=== PATIENT | male | born 1950 | race Caucasian/White ===

== ENCOUNTER 2019-04-22 12:08 | Inpatient (IN) ==
[2019-04-22] MEDS ORDERED: AZITHROMYCIN 250 MG TABLET PO STA (13:33)
[2019-04-22] MEDS ORDERED: cefTRIAXone 1,000 MG in SODIUM CHLORIDE 0.9% 100 ML IV STA (13:33)
[2019-04-22] MEDS ORDERED: SODIUM CHLORIDE 0.9% 1,000 ML IV STA (13:35)
[2019-04-22] MEDS ORDERED: ALBUTEROL 2.5 MG/3 ML NEB RESP TX STA (13:47)
[2019-04-22] MEDS ORDERED: guaiFENesin 200 MG/10 ML UDCUP PO STA (13:47)
[2019-04-22 14:02] LABS: Basophils % 0.2 % (0.0-0.8); Eosinophils # 0.1 10*3/uL (0.0-0.87); Eosinophils % 0.7 % (0.00-10.9); Hematocrit 41.4 VOL% (42.0-52.0); Hemoglobin 13.9 GM/DL (14.0-18.0); Immature Granulocytes % 0.8 %; Immature Granulocytes Absolute 0.08 #; Lymphocytes # 0.8 10*3/uL (1.4-4.0); Lymphocytes % 8.6 % (21.2-54.2); Mean Corpuscular HGB Conc 33.6 GM/DL (32-36); Mean Corpuscular Volume 89.8 FL (87-102); Mean Platelet Volume 9.3 FL (9.6-12.0); Monocytes % 5.9 % (1.7-12.7); Neutrophils % 83.8 % (38.7-73.9); Platelet Count 199 T/CUMM (130-400); Red Blood Count 4.61 MC/CUMM (3.8-5.5); Red Cell Distribution Width 12.6 % (9.3-17.3); White Blood Count 9.7 T/CUMM (4-12)
[2019-04-22 14:26] LABS: Albumin 3.5 G/DL (3.4-5.0); Osmolality,Calculated 280.4 MOS/KG (273-304); Total Protein 6.8 G/DL (6.4-8.3)
[2019-04-22] MEDS ORDERED: BENZONATATE 100 MG CAPSULE PO STA ×2 (15:20→15:21)
[2019-04-22] MEDS ORDERED: BENZONATATE 100 MG CAPSULE PO ONE (15:33)
[2019-04-22] MEDS: GABAPENTIN 100 MG CAPSULE PO SCH ×2 (18:54→22:12)
[2019-04-22] MEDS: CARBIDOPA/LEVODOPA 25-100 MG TABLET PO SCH (18:54)
[2019-04-22] MEDS: ALBUTEROL/IPRATROPIUM 3 ML NEB RESP TX SCH (19:27)
[2019-04-22] MEDS: ASPIRIN EC 81 MG TABLET PO SCH (21:22)
[2019-04-22] MEDS: ACETAMINOPHEN 325 MG TABLET PO PRN (21:25)
[2019-04-22] MEDS: CARBIDOPA/LEVODOPA CR 50-200 MG TABLET PO SCH (21:25)
[2019-04-22] MEDS: GABAPENTIN 300 MG CAPSULE PO SCH (21:45)
[2019-04-23] MEDS: ALBUTEROL/IPRATROPIUM 3 ML NEB RESP TX SCH ×4 (00:17→19:35)
[2019-04-23 05:00] LABS: Basophils % 0.2 % (0.0-0.8); Eosinophils # 0.1 10*3/uL (0.0-0.87); Eosinophils % 0.5 % (0.00-10.9); Hematocrit 37.4 VOL% (42.0-52.0); Hemoglobin 12.3 GM/DL (14.0-18.0); Immature Granulocytes % 0.7 %; Immature Granulocytes Absolute 0.09 #; Lymphocytes % 8.5 % (21.2-54.2); Mean Corpuscular HGB Conc 32.9 GM/DL (32-36); Mean Corpuscular Volume 90.1 FL (87-102); Mean Platelet Volume 9.2 FL (9.6-12.0); Neutrophils % 84.1 % (38.7-73.9); Platelet Count 171 T/CUMM (130-400); Red Blood Count 4.15 MC/CUMM (3.8-5.5); Red Cell Distribution Width 12.5 % (9.3-17.3); White Blood Count 12.2 T/CUMM (4-12)
[2019-04-23 05:27] LABS: Albumin 2.7 G/DL (3.4-5.0); Bilirubin,Total 0.9 MG/DL (0.2-1.0); Calcium 9.1 MG/DL (8.5-10.1); Osmolality,Calculated 284.1 MOS/KG (273-304); Risk Ratio 4.84; Thyroid Stimulating Hormone 0.153 uIU/ml (0.358-3.74); Total Protein 6.5 G/DL (6.4-8.3); VLDL CHOLESTEROL 23.6 MG/DL
[2019-04-23] MEDS: GABAPENTIN 100 MG CAPSULE PO SCH ×2 (05:57→17:42)
[2019-04-23] MEDS: CARBIDOPA/LEVODOPA 25-100 MG TABLET PO SCH ×3 (05:57→17:41)
[2019-04-23] MEDS: FINASTERIDE 5 MG TABLET PO SCH (08:54)
[2019-04-23] MEDS: allopurinoL 300 MG TABLET PO SCH (08:54)
[2019-04-23] MEDS: CYANOCOBALAMIN 500 MCG TABLET PO SCH (08:54)
[2019-04-23] MEDS: PANTOPRAZOLE 40 MG TABLET PO SCH (08:54)
[2019-04-23] MEDS: TERBINAFINE 250 MG TABLET PO SCH (08:54)
[2019-04-23] MEDS: SERTRALINE 100 MG TABLET PO SCH (08:54)
[2019-04-23] MEDS: AZITHROMYCIN INJ 500 MG in SODIUM CHLORIDE 0.9% 250 ML IV SCH (08:57)
[2019-04-23] MEDS: cefTRIAXone 1,000 MG in SYRINGE 1 EACH IV SCH (10:01)
[2019-04-23] MEDS: ACETAMINOPHEN 325 MG TABLET PO PRN (14:20)
[2019-04-23] MEDS: GABAPENTIN 300 MG CAPSULE PO SCH (21:44)
[2019-04-23] MEDS: ASPIRIN EC 81 MG TABLET PO SCH (21:45)
[2019-04-23] MEDS: CARBIDOPA/LEVODOPA CR 50-200 MG TABLET PO SCH (21:58)
[2019-04-24] MEDS: ALBUTEROL/IPRATROPIUM 3 ML NEB RESP TX SCH ×3 (02:20→14:02)
[2019-04-24 04:49] LABS: Basophils % 0.4 % (0.0-0.8); Eosinophils # 0.2 10*3/uL (0.0-0.87); Eosinophils % 2.5 % (0.00-10.9); Hematocrit 34.8 VOL% (42.0-52.0); Hemoglobin 11.3 GM/DL (14.0-18.0); Immature Granulocytes % 1.1 %; Immature Granulocytes Absolute 0.09 #; Lymphocytes % 11.2 % (21.2-54.2); Mean Corpuscular HGB Conc 32.5 GM/DL (32-36); Mean Corpuscular Volume 90.6 FL (87-102); Mean Platelet Volume 9.2 FL (9.6-12.0); Monocytes % 6.9 % (1.7-12.7); Neutrophils % 77.9 % (38.7-73.9); Platelet Count 189 T/CUMM (130-400); Red Blood Count 3.84 MC/CUMM (3.8-5.5); Red Cell Distribution Width 12.8 % (9.3-17.3); White Blood Count 8.6 T/CUMM (4-12)
[2019-04-24 05:06] LABS: Albumin 2.7 G/DL (3.4-5.0); Bilirubin,Total 0.5 MG/DL (0.2-1.0); Calcium 8.8 MG/DL (8.5-10.1); Total Protein 6.1 G/DL (6.4-8.3)
[2019-04-24] MEDS: GABAPENTIN 100 MG CAPSULE PO SCH (06:28)
[2019-04-24] MEDS: CARBIDOPA/LEVODOPA 25-100 MG TABLET PO SCH ×2 (06:29→13:02)
[2019-04-24] MEDS: ACETAMINOPHEN 325 MG TABLET PO PRN (06:37)
[2019-04-24] MEDS: TERBINAFINE 250 MG TABLET PO SCH (09:01)
[2019-04-24] MEDS: FINASTERIDE 5 MG TABLET PO SCH (09:01)
[2019-04-24] MEDS: allopurinoL 300 MG TABLET PO SCH (09:01)
[2019-04-24] MEDS: PANTOPRAZOLE 40 MG TABLET PO SCH (09:01)
[2019-04-24] MEDS: SERTRALINE 100 MG TABLET PO SCH (09:01)
[2019-04-24] MEDS: CYANOCOBALAMIN 500 MCG TABLET PO SCH (09:01)
[2019-04-24] MEDS: cefTRIAXone 1,000 MG in SYRINGE 1 EACH IV SCH (09:01)
[2019-04-24] MEDS: AZITHROMYCIN INJ 500 MG in SODIUM CHLORIDE 0.9% 250 ML IV SCH (09:02)
[2019-04-24 12:11] VITALS: BP 122/76
[2019-04-25] MEDS ORDERED: AZITHROMYCIN 250 MG TABLET PO SCH (09:00)
== END 2019-04-24 15:03 | disposition home or self-care (01) | DRG 195 ==
LOC: N.ED 12:08 → N.EDINP 15:18 → N.2E 16:30
PROVIDERS: ADMIT Internal Medicine; ATTEND Internal Medicine

== ENCOUNTER 2020-09-25 11:39 | Inpatient (IN) ==
[2020-09-25] MEDS ORDERED: SODIUM CHLORIDE 0.9% 1,000 ML IV STA ×3 (12:02→14:08)
[2020-09-25 12:19] LABS: ABG Base Excess -2.1 MMOL/L (-2.5-2.5); ABG HCO3 22.4 MMOL/L (20-26); ABG Oxygen Saturation 86.2 % (95-100); ABG PCO2 41.7 MM HG (35-48); ABG PH 7.357 (7.35-7.45); ABG PO2 53.3 MM HG (80-95); ABG TCO2 20.2 MMOL/L (23-27)
[2020-09-25 12:22] LABS: Basophils % 0.3 % (0.0-0.8); Eosinophils % 0.1 % (0.00-10.9); Hematocrit 48.4 VOL% (42.0-52.0); Immature Granulocytes % 0.1 %; Immature Granulocytes Absolute 0.01 #; Lymphocytes # 0.3 10*3/uL (1.4-4.0); Lymphocytes % 3.8 % (21.2-54.2); Mean Corpuscular Volume 91.3 FL (87-102); Monocytes % 0.3 % (1.7-12.7); Neutrophils % 95.4 % (38.7-73.9); Platelet Count 141 T/CUMM (130-400); Red Cell Distribution Width 14.3 % (9.3-17.3); White Blood Count 7.2 T/CUMM (4-12)
[2020-09-25 12:42] LABS: Band Neutrophils 41 % (0-10); Lymphocytes 3 % (20-55); Metamyelocytes 6 %; Platelet Estimate Adequate; Segmented Neutrophils 50 % (50-85); Total Cells Counted 100
[2020-09-25 12:43] LABS: Anisocytosis Slight
[2020-09-25 12:44] LABS: Alanine Aminotransferase < 9 U/L (16-61); Alkaline Phosphatase 96 U/L (45-117); Aspartate Amino Transferase 15 U/L (0-37); Blood Urea Nitrogen 28 MG/DL (7-18); Calcium 9.4 MG/DL (8.5-10.1); Carbon Dioxide 26 MMOL/L (21-32); Estimated Glom Filtration Rate 65 ML/MIN; Glucose 134 MG/DL (74-106); INR 1.1; PT Patient Result 11.8 SECS (9.8-11.9); Potassium 4.1 MMOL/L (3.5-5.1); Sodium 143 MMOL/L (136-145); Total Protein 7.1 G/DL (6.4-8.3)
[2020-09-25] MEDS ORDERED: PIPERACILLIN/TAZOBACTAM 3,375 MG in SODIUM CHLORIDE 0.9% 100 ML IV STA (13:10)
[2020-09-25] MEDS ORDERED: PIPERACILLIN/TAZOBACTAM 3,375 MG VIAL IV ONE (13:22)
[2020-09-25] MEDS ORDERED: SODIUM CHLORIDE 0.9% 100 ML IV ONE (13:22)
[2020-09-25 13:26] LABS: Bilirubin,Urine Negative (Negative); Blood, Urine Large mg/dL (Negative); Glucose,Urine (UA) Negative (Negative); Ketones,Urine Negative (Negative); Nitrite,Urine Negative (Negative); Protein,Urine >=500 MG/DL; RBC,Urine 12288 /HPF (0-4); Urine Appearance CLOUDY (Clear); Urine Color Red (Yellow); Urine Specific Gravity 1.018 (1.001-1.035); Urine Urobilinogen < 2.0 EU/DL (0.2-1.0); WBC,Urine 90 /HPF (0-6)
[2020-09-25] MEDS ORDERED: ALBUTEROL/IPRATROPIUM 3 ML NEB RESP TX PRN (14:42)
[2020-09-25] MEDS ORDERED: ONDANSETRON 4 MG/2 ML VIAL IV PRN (14:42)
[2020-09-25] MEDS: LACTATED RINGERS 1,000 ML IV SCH (16:23)
[2020-09-25] MEDS: FAMOTIDINE 20 MG/2 ML VIAL IV SCH (16:23)
[2020-09-25] MEDS: LEVOFLOXACIN INJ 500 MG in PREMIX 1 EACH IV SCH (16:25)
[2020-09-25] MEDS ORDERED: LACTATED RINGERS 1,000 ML IV ONE ×2 (16:50→19:30)
[2020-09-25 16:53] LABS: Ferritin 565.6 ng/ml (26-388)
[2020-09-25 17:54] LABS: Basophils % 0.2 % (0.0-0.8); Eosinophils % 0.2 % (0.00-10.9); Hematocrit 37.6 VOL% (42.0-52.0); Hemoglobin 11.4 GM/DL (14.0-18.0); Immature Granulocytes % 1.4 %; Immature Granulocytes Absolute 0.28 #; Lymphocytes # 0.3 10*3/uL (1.4-4.0); Lymphocytes % 1.5 % (21.2-54.2); Mean Corpuscular HGB Conc 30.3 GM/DL (32-36); Mean Corpuscular Volume 92.8 FL (87-102); Monocytes % 3.1 % (1.7-12.7); Neutrophils % 93.6 % (38.7-73.9); Platelet Count 135 T/CUMM (130-400); Red Blood Count 4.05 MC/CUMM (3.8-5.5); Red Cell Distribution Width 14.3 % (9.3-17.3); White Blood Count 19.7 T/CUMM (4-12)
[2020-09-25] MEDS: CARBIDOPA/LEVODOPA 25-100 MG TABLET PO SCH ×2 (18:13→20:35)
[2020-09-25] MEDS ORDERED: ALBUMIN 5% 25 GM in PREMIX 1 EACH IV ONE (18:34)
[2020-09-25 18:37] LABS: Band Neutrophils 13 % (0-10); Lymphocytes 1 % (20-55); Metamyelocytes 1 %; Myelocytes 4 %; Segmented Neutrophils 77 % (50-85); Total Cells Counted 100
[2020-09-25 18:39] LABS: Platelet Estimate Adequate
[2020-09-25 18:42] LABS: Anisocytosis 1+
[2020-09-25 18:43] LABS: Macrocytosis 1+; Microcytosis 1+
[2020-09-25] MEDS: ACETAMINOPHEN 325 MG TABLET PO PRN (19:04)
[2020-09-25] MEDS ORDERED: ALBUMIN 25% 12.5 GM in PREMIX 1 EACH IV ONE (19:05)
[2020-09-25] MEDS ORDERED: ALBUMIN 5% 12.5 GM in PREMIX 1 EACH IV ONE (19:11)
[2020-09-25] MEDS: GABAPENTIN 300 MG CAPSULE PO SCH (20:35)
[2020-09-25] MEDS: GABAPENTIN 100 MG CAPSULE PO SCH (20:36)
[2020-09-25] MEDS: ASCORBIC ACID 500 MG TABLET PO SCH (20:36)
[2020-09-25] MEDS: CARBIDOPA/LEVODOPA CR 25-100 MG TABLET PO SCH (20:40)
[2020-09-25] MEDS ORDERED: NOREPINEPHRINE 8 MG in SODIUM CHLORIDE 0.9% 242 ML IV PRN (21:27)
[2020-09-25] MEDS ORDERED: NOREPINEPHRINE 4 MG/4 ML VIAL IV ONE (21:28)
[2020-09-25 23:57] LABS: Basophils % 0.1 % (0.0-0.8); Hematocrit 36.1 VOL% (42.0-52.0); Hemoglobin 11.2 GM/DL (14.0-18.0); Immature Granulocytes % 1.4 %; Immature Granulocytes Absolute 0.31 #; Lymphocytes # 0.6 10*3/uL (1.4-4.0); Lymphocytes % 2.5 % (21.2-54.2); Mean Corpuscular Volume 91.4 FL (87-102); Mean Platelet Volume 10.5 FL (9.6-12.0); Monocytes % 4.3 % (1.7-12.7); Neutrophils % 91.7 % (38.7-73.9); Platelet Count 136 T/CUMM (130-400); Red Blood Count 3.95 MC/CUMM (3.8-5.5); Red Cell Distribution Width 14.6 % (9.3-17.3); White Blood Count 22.2 T/CUMM (4-12)
[2020-09-26] MEDS: LACTATED RINGERS 1,000 ML IV SCH ×4 (00:38→23:35)
[2020-09-26] MEDS: ACETAMINOPHEN 325 MG TABLET PO PRN ×2 (01:05→20:15)
[2020-09-26 04:36] LABS: Band Neutrophils 3 % (0-10); Lymphocytes 2 % (20-55); Platelet Estimate Decreased; Segmented Neutrophils 92 % (50-85); Total Cells Counted 100
[2020-09-26] MEDS: FAMOTIDINE 20 MG/2 ML VIAL IV SCH ×2 (04:40→14:49)
[2020-09-26 04:51] LABS: Basophils % 0.1 % (0.0-0.8); Eosinophils % 0.1 % (0.00-10.9); Hematocrit 36.7 VOL% (42.0-52.0); Hemoglobin 11.7 GM/DL (14.0-18.0); Immature Granulocytes % 0.9 %; Immature Granulocytes Absolute 0.18 #; Lymphocytes # 1.1 10*3/uL (1.4-4.0); Lymphocytes % 5.2 % (21.2-54.2); Mean Corpuscular HGB Conc 31.9 GM/DL (32-36); Mean Corpuscular Volume 90.6 FL (87-102); Mean Platelet Volume 10.7 FL (9.6-12.0); Monocytes % 5.2 % (1.7-12.7); Neutrophils % 88.5 % (38.7-73.9); Platelet Count 126 T/CUMM (130-400); Red Blood Count 4.05 MC/CUMM (3.8-5.5); Red Cell Distribution Width 14.5 % (9.3-17.3); White Blood Count 20.3 T/CUMM (4-12)
[2020-09-26 05:04] LABS: Calcium 8.4 MG/DL (8.5-10.1); Osmolality,Calculated 284.4 MOS/KG (273-304); Potassium 4.2 MMOL/L (3.5-5.1)
[2020-09-26 08:15] LABS: Anisocytosis Slight; Band Neutrophils 5 % (0-10); Lymphocytes 3 % (20-55); Macrocytosis Slight; Platelet Estimate Decreased; Segmented Neutrophils 88 % (50-85); Total Cells Counted 100
[2020-09-26] MEDS: CARBIDOPA/LEVODOPA 25-100 MG TABLET PO SCH ×3 (09:43→20:16)
[2020-09-26] MEDS: GABAPENTIN 100 MG CAPSULE PO SCH ×2 (09:44→20:16)
[2020-09-26] MEDS: CHOLECALCIFEROL 1,000 UNIT TABLET PO SCH (09:44)
[2020-09-26] MEDS: ASCORBIC ACID 500 MG TABLET PO SCH ×2 (09:44→20:15)
[2020-09-26] MEDS: FINASTERIDE 5 MG TABLET PO SCH (09:45)
[2020-09-26] MEDS: SERTRALINE 100 MG TABLET PO SCH (09:45)
[2020-09-26] MEDS: cefTRIAXone 1,000 MG in SYRINGE 1 EACH IV SCH (13:46)
[2020-09-26] MEDS ORDERED: MAGNESIUM SULF RIDER 2 GM in PREMIX 1 EACH IV ONE (15:41)
[2020-09-26] MEDS: LEVOFLOXACIN INJ 500 MG in PREMIX 1 EACH IV SCH (16:30)
[2020-09-26] MEDS: CARBIDOPA/LEVODOPA CR 25-100 MG TABLET PO SCH (20:15)
[2020-09-26] MEDS: GABAPENTIN 300 MG CAPSULE PO SCH (20:16)
[2020-09-27] MEDS: FAMOTIDINE 20 MG/2 ML VIAL IV SCH ×2 (03:07→15:49)
[2020-09-27 06:26] LABS: Basophils % 0.2 % (0.0-0.8); Eosinophils # 0.2 10*3/uL (0.0-0.87); Eosinophils % 1.5 % (0.00-10.9); Hematocrit 35.7 VOL% (42.0-52.0); Hemoglobin 11.6 GM/DL (14.0-18.0); Immature Granulocytes % 2.2 %; Immature Granulocytes Absolute 0.27 #; Lymphocytes # 0.9 10*3/uL (1.4-4.0); Lymphocytes % 7.2 % (21.2-54.2); Mean Corpuscular HGB Conc 32.5 GM/DL (32-36); Mean Corpuscular Volume 88.6 FL (87-102); Mean Platelet Volume 10.1 FL (9.6-12.0); Monocytes % 3.9 % (1.7-12.7); Platelet Count 115 T/CUMM (130-400); Red Blood Count 4.03 MC/CUMM (3.8-5.5); Red Cell Distribution Width 14.3 % (9.3-17.3); White Blood Count 12.3 T/CUMM (4-12)
[2020-09-27] MEDS: LACTATED RINGERS 1,000 ML IV SCH ×3 (06:42→22:16)
[2020-09-27 07:54] LABS: Calcium 8.6 MG/DL (8.5-10.1); Osmolality,Calculated 283.1 MOS/KG (273-304); Potassium 4.1 MMOL/L (3.5-5.1)
[2020-09-27] MEDS: ASCORBIC ACID 500 MG TABLET PO SCH ×2 (08:27→22:27)
[2020-09-27] MEDS: GABAPENTIN 100 MG CAPSULE PO SCH ×2 (08:27→22:27)
[2020-09-27] MEDS: SERTRALINE 100 MG TABLET PO SCH (08:28)
[2020-09-27] MEDS: CARBIDOPA/LEVODOPA 25-100 MG TABLET PO SCH ×3 (08:28→22:27)
[2020-09-27] MEDS: FINASTERIDE 5 MG TABLET PO SCH (08:28)
[2020-09-27] MEDS: CHOLECALCIFEROL 1,000 UNIT TABLET PO SCH (08:28)
[2020-09-27] MEDS: methylPREDNISolone SOD SUC 40 MG/1 ML VIAL IV SCH ×2 (09:30→21:44)
[2020-09-27] MEDS: cefTRIAXone 1,000 MG in SYRINGE 1 EACH IV SCH (12:30)
[2020-09-27] MEDS: GENTAMICIN INJ 120 MG in PREMIX 1 EACH IV SCH (14:29)
[2020-09-27] MEDS: ACETAMINOPHEN 325 MG TABLET PO PRN (15:59)
[2020-09-27] MEDS: GABAPENTIN 300 MG CAPSULE PO SCH (21:43)
[2020-09-27] MEDS: TAMSULOSIN 0.4 MG CAPSULE PO SCH (22:27)
[2020-09-27] MEDS: CARBIDOPA/LEVODOPA CR 25-100 MG TABLET PO SCH (22:27)
[2020-09-28] MEDS: FAMOTIDINE 20 MG/2 ML VIAL IV SCH ×2 (02:35→15:35)
[2020-09-28 05:23] LABS: Basophils % 0.1 % (0.0-0.8); Hematocrit 36.5 VOL% (42.0-52.0); Immature Granulocytes % 2.6 %; Immature Granulocytes Absolute 0.36 #; Lymphocytes # 0.5 10*3/uL (1.4-4.0); Lymphocytes % 3.6 % (21.2-54.2); Mean Corpuscular HGB Conc 32.9 GM/DL (32-36); Mean Corpuscular Volume 86.9 FL (87-102); Mean Platelet Volume 10.5 FL (9.6-12.0); Monocytes % 2.6 % (1.7-12.7); Neutrophils % 91.1 % (38.7-73.9); Platelet Count 147 T/CUMM (130-400); Red Cell Distribution Width 14.1 % (9.3-17.3); White Blood Count 13.7 T/CUMM (4-12)
[2020-09-28 05:46] LABS: Hypochromasia 1+; Lymphocytes 2 % (20-55); Microcytosis 1+; Platelet Estimate Adequate; Segmented Neutrophils 94 % (50-85); Total Cells Counted 100
[2020-09-28] MEDS: LACTATED RINGERS 1,000 ML IV SCH ×2 (06:34→16:36)
[2020-09-28] MEDS: SERTRALINE 100 MG TABLET PO SCH ×2 (09:00→21:54)
[2020-09-28] MEDS: FINASTERIDE 5 MG TABLET PO SCH ×2 (09:00→21:54)
[2020-09-28] MEDS: GABAPENTIN 100 MG CAPSULE PO SCH (09:33)
[2020-09-28] MEDS: CARBIDOPA/LEVODOPA 25-100 MG TABLET PO SCH ×3 (09:33→17:00)
[2020-09-28] MEDS: CHOLECALCIFEROL 1,000 UNIT TABLET PO SCH (09:34)
[2020-09-28] MEDS: ASCORBIC ACID 500 MG TABLET PO SCH (09:34)
[2020-09-28] MEDS: methylPREDNISolone SOD SUC 40 MG/1 ML VIAL IV SCH ×2 (09:34→21:54)
[2020-09-28] MEDS: cefTRIAXone 1,000 MG in SYRINGE 1 EACH IV SCH (12:32)
[2020-09-28] MEDS: GENTAMICIN INJ 120 MG in PREMIX 1 EACH IV SCH (13:35)
[2020-09-28] MEDS ORDERED: GABAPENTIN 100 MG CAPSULE PO PRN (20:10)
[2020-09-28] MEDS: allopurinoL 300 MG TABLET PO SCH (21:54)
[2020-09-28] MEDS: ASPIRIN CHEW 81 MG TABLET PO SCH (21:54)
[2020-09-28] MEDS: TAMSULOSIN 0.4 MG CAPSULE PO SCH (21:54)
[2020-09-29] MEDS: CARBIDOPA/LEVODOPA 25-100 MG TABLET PO SCH ×5 (00:13→22:27)
[2020-09-29] MEDS: CARBIDOPA/LEVODOPA CR 25-100 MG TABLET PO SCH ×2 (00:14→22:28)
[2020-09-29] MEDS: GABAPENTIN 600 MG TABLET PO SCH ×2 (00:14→22:27)
[2020-09-29] MEDS: ASCORBIC ACID 500 MG TABLET PO SCH ×3 (00:14→22:28)
[2020-09-29] MEDS: FAMOTIDINE 20 MG/2 ML VIAL IV SCH ×2 (03:46→15:49)
[2020-09-29 05:32] LABS: Immature Granulocytes % 1.2 %; Immature Granulocytes Absolute 0.11 #; Lymphocytes # 0.5 10*3/uL (1.4-4.0); Lymphocytes % 5.7 % (21.2-54.2); Mean Corpuscular HGB Conc 31.6 GM/DL (32-36); Monocytes % 2.8 % (1.7-12.7); Neutrophils % 90.3 % (38.7-73.9); Platelet Count 161 T/CUMM (130-400); Red Blood Count 4.22 MC/CUMM (3.8-5.5); Red Cell Distribution Width 13.8 % (9.3-17.3); White Blood Count 8.9 T/CUMM (4-12)
[2020-09-29 06:03] LABS: Calcium 8.6 MG/DL (8.5-10.1); Osmolality,Calculated 283.4 MOS/KG (273-304); Potassium 4.4 MMOL/L (3.5-5.1)
[2020-09-29] MEDS: POTASSIUM CHLORIDE 10 MEQ TABLET PO SCH (08:49)
[2020-09-29] MEDS: TAMSULOSIN 0.4 MG CAPSULE PO SCH ×2 (08:49→22:13)
[2020-09-29] MEDS: CHOLECALCIFEROL 1,000 UNIT TABLET PO SCH (08:50)
[2020-09-29] MEDS: methylPREDNISolone SOD SUC 40 MG/1 ML VIAL IV SCH ×2 (08:51→22:13)
[2020-09-29] MEDS: ASPIRIN CHEW 81 MG TABLET PO SCH (09:00)
[2020-09-29] MEDS: LACTATED RINGERS 1,000 ML IV SCH ×2 (10:27→20:23)
[2020-09-29] MEDS: cefTRIAXone 1,000 MG in SYRINGE 1 EACH IV SCH (15:46)
[2020-09-29] MEDS: GENTAMICIN INJ 120 MG in PREMIX 1 EACH IV SCH (15:54)
[2020-09-29] MEDS ORDERED: INFLUENZA VIRUS VACCINE 0.5 ML SYRINGE IM ONE (16:14)
[2020-09-29] MEDS ORDERED: ASPIRIN CHEW 81 MG TABLET PO SCH (21:00)
[2020-09-29] MEDS: FINASTERIDE 5 MG TABLET PO SCH (22:12)
[2020-09-29] MEDS: allopurinoL 300 MG TABLET PO SCH (22:12)
[2020-09-29] MEDS: SERTRALINE 100 MG TABLET PO SCH (22:13)
[2020-09-30] MEDS: FAMOTIDINE 20 MG/2 ML VIAL IV SCH (02:30)
[2020-09-30 05:44] LABS: Basophils % 0.2 % (0.0-0.8); Hematocrit 36.8 VOL% (42.0-52.0); Immature Granulocytes Absolute 0.06 #; Lymphocytes # 0.5 10*3/uL (1.4-4.0); Lymphocytes % 8.3 % (21.2-54.2); Mean Corpuscular HGB Conc 32.6 GM/DL (32-36); Mean Corpuscular Volume 87.6 FL (87-102); Mean Platelet Volume 9.9 FL (9.6-12.0); Neutrophils % 86.5 % (38.7-73.9); Platelet Count 154 T/CUMM (130-400); Red Cell Distribution Width 13.5 % (9.3-17.3); White Blood Count 6.1 T/CUMM (4-12)
[2020-09-30 06:08] LABS: Calcium 8.6 MG/DL (8.5-10.1); Osmolality,Calculated 283.5 MOS/KG (273-304); Potassium 4.3 MMOL/L (3.5-5.1)
[2020-09-30] MEDS: ASCORBIC ACID 500 MG TABLET PO SCH (09:21)
[2020-09-30] MEDS: POTASSIUM CHLORIDE 10 MEQ TABLET PO SCH (09:21)
[2020-09-30] MEDS: CHOLECALCIFEROL 1,000 UNIT TABLET PO SCH (09:21)
[2020-09-30] MEDS: TAMSULOSIN 0.4 MG CAPSULE PO SCH (09:21)
[2020-09-30] MEDS: methylPREDNISolone SOD SUC 40 MG/1 ML VIAL IV SCH (09:26)
[2020-09-30] MEDS: LACTATED RINGERS 1,000 ML IV SCH (09:27)
[2020-09-30] MEDS: CARBIDOPA/LEVODOPA 25-100 MG TABLET PO SCH ×2 (09:29→12:26)
[2020-09-30] MEDS: cefTRIAXone 1,000 MG in SYRINGE 1 EACH IV SCH (12:04)
[2020-09-30 16:15] VITALS: BP 144/78
[2020-09-30] MEDS ORDERED: FAMOTIDINE 20 MG TABLET PO SCH (21:00)
== END 2020-09-30 18:01 | DRG 871 ==
LOC: N.ED 11:39 → N.EDINP 14:42 → SUATTDRO 14:42 → N.EDINP 16:01 → N.CC 16:53 → N.3E 09-27 18:45
PROVIDERS: ADMIT Family Medicine; ATTEND Internal Medicine

== ENCOUNTER 2020-12-05 10:06 | Inpatient (IN) ==
[2020-12-05] MEDS ORDERED: MORPHINE 4 MG/1 ML VIAL ONE (10:18)
[2020-12-05] MEDS ORDERED: MORPHINE 4 MG/1 ML VIAL IV STA (10:27)
[2020-12-05 10:55] LABS: Basophils % 0.3 % (0.0-0.8); Eosinophils % 0.6 % (0.00-10.9); Hematocrit 40.2 VOL% (42.0-52.0); Hemoglobin 12.1 GM/DL (14.0-18.0); Immature Granulocytes % 0.7 %; Immature Granulocytes Absolute 0.05 #; Lymphocytes # 0.8 10*3/uL (1.4-4.0); Lymphocytes % 11.2 % (21.2-54.2); Mean Corpuscular HGB Conc 30.1 GM/DL (32-36); Mean Corpuscular Volume 91.8 FL (87-102); Mean Platelet Volume 10.1 FL (9.6-12.0); Monocytes % 3.3 % (1.7-12.7); Neutrophils % 83.9 % (38.7-73.9); Platelet Count 102 T/CUMM (130-400); Red Blood Count 4.38 MC/CUMM (3.8-5.5); Red Cell Distribution Width 15.7 % (9.3-17.3)
[2020-12-05 11:03] LABS: ABG Base Excess 2.7 MMOL/L (-2.5-2.5); ABG HCO3 26.7 MMOL/L (20-26); ABG PH 7.238 (7.35-7.45); ABG PO2 70.9 MM HG (80-95)
[2020-12-05 11:14] LABS: Bilirubin,Urine Negative (Negative); Blood, Urine Moderate mg/dL (Negative); Glucose,Urine (UA) 50 mg/dL (Negative); Hyaline Casts,Urine 43 /LPF (0-3); Ketones,Urine 5 mg/dL (Negative); Mucus,Urine Many /LPF (Occasional); Nitrite,Urine Negative (Negative); Protein,Urine 100 MG/DL; RBC,Urine 6 /HPF (0-4); Red Blood Cell Casts,Urine 4 /LPF (<1); Squamous Epithelial Cell,Urine Occasional /HPF (0-10); Urine Appearance Slightly Hazy (Clear); Urine Color Amber (Yellow); Urine Specific Gravity 1.015 (1.001-1.035)
[2020-12-05 11:16] LABS: INR 1.1; PT Patient Result 12.2 SECS (10.5-12.0)
[2020-12-05] MEDS ORDERED: cefTRIAXone 1,000 MG in SODIUM CHLORIDE 0.9% 100 ML IV STA (11:20)
[2020-12-05 11:31] LABS: Alanine Aminotransferase < 6 U/L (16-61); Albumin 3.1 G/DL (3.4-5.0); Alkaline Phosphatase 73 U/L (45-117); Aspartate Amino Transferase 23 U/L (0-37); Blood Urea Nitrogen 17 MG/DL (7-18); Calcium 8.5 MG/DL (8.5-10.1); Carbon Dioxide 28 MMOL/L (21-32); Estimated Glom Filtration Rate 130 ML/MIN; Glucose 127 MG/DL (74-106); Osmolality,Calculated 293.6 MOS/KG (273-304); Potassium 3.9 MMOL/L (3.5-5.1); Sodium 146 MMOL/L (136-145); Total Protein 5.8 G/DL (6.4-8.2)
[2020-12-05] MEDS ORDERED: ASPIRIN CHEW 81 MG TABLET PO STA (11:52)
[2020-12-05] MEDS ORDERED: ENOXAPARIN 30 MG/0.3 ML SYRINGE SUBCUT STA (11:52)
[2020-12-05] MEDS ORDERED: ENOXAPARIN 30 MG/0.3 ML SYRINGE IV STA (11:53)
[2020-12-05] MEDS ORDERED: TIROFIBAN IV ONE (11:58)
[2020-12-05] MEDS ORDERED: TIROFIBAN 5,000 MCG/100 ML PREMIX IV SCH (12:00)
[2020-12-05] MEDS ORDERED: ASPIRIN 325 MG TABLET ONE (12:04)
[2020-12-05] MEDS ORDERED: ENOXAPARIN 100 MG/ML SYRINGE SUBCUT ONE (12:04)
[2020-12-05] MEDS ORDERED: ASPIRIN 300 MG SUPP RECTAL ONE (12:18)
[2020-12-05] MEDS ORDERED: ASPIRIN 300 MG SUPP RECTAL STA (12:23)
[2020-12-05 12:24] LABS: ABG Base Excess 2.7 MMOL/L (-2.5-2.5); ABG HCO3 26.8 MMOL/L (20-26); ABG Oxygen Saturation 94.5 % (95-100); ABG PH 7.235 (7.35-7.45); ABG PO2 80.3 MM HG (80-95); ABG TCO2 30.1 MMOL/L (23-27); Allen Test Positive; Pt O2 Delivery Device BIPAP
[2020-12-05 12:27] LABS: ABG PCO2 77.8 MM HG (35-48)
[2020-12-05] MEDS ORDERED: ETOMIDATE 20 MG/10 ML VIAL IV ONE (13:07)
[2020-12-05] MEDS ORDERED: ROCURONIUM 100 MG/10 ML VIAL IV ONE (13:08)
[2020-12-05] MEDS ORDERED: ROCURONIUM 100 MG/10 ML VIAL IV STA (13:24)
[2020-12-05] MEDS ORDERED: ETOMIDATE 20 MG/10 ML VIAL IV STA (13:24)
[2020-12-05] MEDS ORDERED: ALBUTEROL 2.5 MG/3 ML NEB RESP TX PRN (14:08)
[2020-12-05] MEDS ORDERED: ONDANSETRON 4 MG/2 ML VIAL IV PRN (14:08)
[2020-12-05] MEDS ORDERED: hydrALAZINE 20 MG/1 ML VIAL IV PRN (14:08)
[2020-12-05] MEDS ORDERED: FUROSEMIDE 40 MG/4 ML VIAL IV ONE (14:12)
[2020-12-05] MEDS ORDERED: OXYMETAZOLINE 0.05% NASAL SPRAY 15 ML BOTTLE ONE (14:36)
[2020-12-05] MEDS ORDERED: OXYMETAZOLINE 0.05% NASAL SPRAY 15 ML BOTTLE BOTH NARES STA (14:36)
[2020-12-05] MEDS ORDERED: COCAINE SUBSTITUTE 30 ML BOTTLE TOP ONE (14:36)
[2020-12-05] MEDS ORDERED: COCAINE SUBSTITUTE 30 ML BOTTLE TOP STA (14:36)
[2020-12-05] MEDS: PANTOPRAZOLE 40 MG VIAL IV SCH (14:38)
[2020-12-05 15:02] LABS: ABG Base Excess 4.5 MMOL/L (-2.5-2.5); ABG HCO3 28.4 MMOL/L (20-26); ABG Oxygen Saturation 96.6 % (95-100); ABG PCO2 50.9 MM HG (35-48); ABG PH 7.387 (7.35-7.45); ABG PO2 76.8 MM HG (80-95); ABG TCO2 27.3 MMOL/L (23-27)
[2020-12-05] MEDS: INSULIN LISPRO 100 UNIT/ML SUBCUT SCH ×2 (17:01→22:07)
[2020-12-05] MEDS ORDERED: ATORVASTATIN 40 MG TABLET PO SCH (21:00)
[2020-12-05] MEDS: FUROSEMIDE 40 MG/4 ML VIAL IV SCH (21:12)
[2020-12-06 04:23] LABS: ABG Base Excess 9.6 MMOL/L (-2.5-2.5); ABG HCO3 33.4 MMOL/L (20-26); ABG Oxygen Saturation 99.7 % (95-100); ABG PCO2 42.4 MM HG (35-48); ABG PH 7.509 (7.35-7.45); ABG TCO2 29.7 MMOL/L (23-27); Allen Test Positive; Pt O2 Delivery Device Ventilator
[2020-12-06 04:28] LABS: Basophils % 0.2 % (0.0-0.8); Eosinophils # 0.2 10*3/uL (0.0-0.87); Hematocrit 37.9 VOL% (42.0-52.0); Hemoglobin 12.2 GM/DL (14.0-18.0); Immature Granulocytes % 0.6 %; Immature Granulocytes Absolute 0.05 #; Lymphocytes # 1.4 10*3/uL (1.4-4.0); Lymphocytes % 15.9 % (21.2-54.2); Mean Corpuscular HGB Conc 32.2 GM/DL (32-36); Mean Corpuscular Volume 87.1 FL (87-102); Mean Platelet Volume 10.1 FL (9.6-12.0); Monocytes % 5.3 % (1.7-12.7); Platelet Count 102 T/CUMM (130-400); Red Blood Count 4.35 MC/CUMM (3.8-5.5); Red Cell Distribution Width 15.4 % (9.3-17.3); White Blood Count 8.9 T/CUMM (4-12)
[2020-12-06 04:39] LABS: INR 1.2; PT Patient Result 12.8 SECS (10.5-12.0)
[2020-12-06 04:51] LABS: Hypochromasia Slight; Microcytosis Slight; Platelet Estimate Decreased
[2020-12-06 05:04] LABS: Alanine Aminotransferase < 9 U/L (16-61); Alkaline Phosphatase 68 U/L (45-117); Aspartate Amino Transferase 27 U/L (0-37); Blood Urea Nitrogen 14 MG/DL (7-18); Calcium 8.6 MG/DL (8.5-10.1); Carbon Dioxide 33 MMOL/L (21-32); Estimated Glom Filtration Rate 141 ML/MIN; Glucose 118 MG/DL (74-106); HDL Cholesterol 31 MG/DL (40-60); Osmolality,Calculated 287.8 MOS/KG (273-304); Potassium 2.9 MMOL/L (3.5-5.1); Risk Ratio 5.32; Sodium 144 MMOL/L (136-145); Total Protein 6.1 G/DL (6.4-8.2); Triglycerides 256 MG/DL (2-150); VLDL CHOLESTEROL 51.2 MG/DL
[2020-12-06] MEDS ORDERED: MAGNESIUM SULF RIDER 2 GM/50 ML PREMIX IV ONE (05:50)
[2020-12-06] MEDS ORDERED: MAGNESIUM SULF RIDER 2 GM/50 ML PREMIX IV PRN ×2 (06:01→07:43)
[2020-12-06] MEDS: POTASSIUM CHLORIDE RIDER 10 MEQ in PREMIX 1 EACH IV PRN ×3 (06:29→10:13)
[2020-12-06] MEDS: POTASSIUM CHLORIDE 20 MEQ/15 ML UDCUP PER TUBE SCH ×4 (07:07→18:10)
[2020-12-06] MEDS: LEVOFLOXACIN 750 MG TABLET PER TUBE SCH (07:07)
[2020-12-06] MEDS ORDERED: POTASSIUM CHLORIDE RIDER 10 MEQ in PREMIX 1 EACH IV PRN (07:43)
[2020-12-06] MEDS: INSULIN LISPRO 100 UNIT/ML SUBCUT SCH ×4 (08:06→23:52)
[2020-12-06] MEDS: ENOXAPARIN 100 MG/ML SYRINGE SUBCUT SCH ×2 (08:40→20:30)
[2020-12-06] MEDS: FUROSEMIDE 40 MG/4 ML VIAL IV SCH (08:43)
[2020-12-06] MEDS: FLUDROCORTISONE 0.1 MG TABLET PER TUBE SCH ×2 (08:45→13:30)
[2020-12-06] MEDS: CARBIDOPA/LEVODOPA 25-100 MG TABLET PER TUBE SCH ×3 (08:45→18:10)
[2020-12-06] MEDS ORDERED: DEXTROSE 50% 25 GM/50 ML VIAL IV PRN (08:59)
[2020-12-06] MEDS ORDERED: GLUCAGON 1 MG VIAL IM PRN (08:59)
[2020-12-06] MEDS ORDERED: ENOXAPARIN 40 MG/0.4 ML SYRINGE SUBCUT SCH (09:00)
[2020-12-06] MEDS: ASPIRIN CHEW 81 MG TABLET PO SCH (10:10)
[2020-12-06] MEDS ORDERED: LIDOCAINE 1% 20 ML VIAL ONE (10:55)
[2020-12-06] MEDS: ROSUVASTATIN 20 MG TABLET PO SCH (13:30)
[2020-12-06] MEDS: PANTOPRAZOLE 40 MG VIAL IV SCH (13:35)
[2020-12-06] MEDS: cefTRIAXone 1,000 MG in SODIUM CHLORIDE 0.9% 100 ML IV SCH (14:30)
[2020-12-06] MEDS: SODIUM CHLORIDE 0.65% NASAL SPRAY 45 ML BOTTLE BOTH NARES SCH ×2 (15:45→20:31)
[2020-12-06] MEDS ORDERED: SODIUM CHLORIDE 0.9% 500 ML IV ONE (17:41)
[2020-12-06] MEDS ORDERED: NOREPINEPHRINE 8 MG in SODIUM CHLORIDE 0.9% 242 ML IV PRN (17:44)
[2020-12-06] MEDS: GABAPENTIN 300 MG CAPSULE PER TUBE SCH (20:30)
[2020-12-06] MEDS: allopurinoL 300 MG TABLET PER TUBE SCH (20:30)
[2020-12-06] MEDS ORDERED: SPIRONOLACTONE 25 MG TABLET PO SCH (21:00)
[2020-12-06] MEDS ORDERED: METOPROLOL TARTRATE 25 MG TABLET PO SCH (21:00)
[2020-12-07] MEDS: MORPHINE 4 MG/1 ML VIAL IV PRN ×2 (03:04→10:00)
[2020-12-07 04:10] LABS: ABG Base Excess 7.1 MMOL/L (-2.5-2.5); ABG Oxygen Saturation 98.6 % (95-100); ABG PH 7.451 (7.35-7.45); ABG PO2 149.4 MM HG (80-95); ABG TCO2 33.4 MMOL/L (23-27)
[2020-12-07 04:15] LABS: Basophils % 0.2 % (0.0-0.8); Eosinophils # 0.1 10*3/uL (0.0-0.87); Eosinophils % 3.1 % (0.00-10.9); Hematocrit 33.8 VOL% (42.0-52.0); Hemoglobin 10.4 GM/DL (14.0-18.0); Immature Granulocytes % 0.4 %; Immature Granulocytes Absolute 0.02 #; Lymphocytes # 0.8 10*3/uL (1.4-4.0); Lymphocytes % 17.1 % (21.2-54.2); Mean Corpuscular HGB Conc 30.8 GM/DL (32-36); Mean Corpuscular Volume 89.9 FL (87-102); Mean Platelet Volume 10.3 FL (9.6-12.0); Monocytes % 6.2 % (1.7-12.7); Platelet Count 110 T/CUMM (130-400); Red Blood Count 3.76 MC/CUMM (3.8-5.5); Red Cell Distribution Width 15.7 % (9.3-17.3); White Blood Count 4.5 T/CUMM (4-12)
[2020-12-07 04:39] LABS: Potassium 3.4 MMOL/L (3.5-5.1)
[2020-12-07 04:42] LABS: Hypochromasia 1+; Microcytosis 1+; Platelet Estimate Decreased
[2020-12-07] MEDS: POTASSIUM CHLORIDE RIDER 10 MEQ in PREMIX 1 EACH IV PRN ×2 (05:50→07:30)
[2020-12-07] MEDS: LEVOFLOXACIN 750 MG TABLET PER TUBE SCH (05:58)
[2020-12-07] MEDS: INSULIN LISPRO 100 UNIT/ML SUBCUT SCH ×3 (05:58→18:19)
[2020-12-07] MEDS: CARBIDOPA/LEVODOPA 25-100 MG TABLET PER TUBE SCH ×3 (06:07→17:40)
[2020-12-07] MEDS ORDERED: POTASSIUM CHLORIDE 20 MEQ/15 ML UDCUP PO ONE (07:37)
[2020-12-07] MEDS: ASPIRIN CHEW 81 MG TABLET PO SCH (08:50)
[2020-12-07] MEDS: FLUDROCORTISONE 0.1 MG TABLET PER TUBE SCH ×2 (08:50→13:40)
[2020-12-07] MEDS: ROSUVASTATIN 20 MG TABLET PO SCH (08:50)
[2020-12-07] MEDS: ENOXAPARIN 100 MG/ML SYRINGE SUBCUT SCH (08:50)
[2020-12-07] MEDS ORDERED: PNEUMOCOCCAL VACCINE (13 VALENT) 0.5 ML SYRINGE IM ONE (09:00)
[2020-12-07] MEDS: SODIUM CHLORIDE 0.65% NASAL SPRAY 45 ML BOTTLE BOTH NARES SCH ×3 (09:10→20:52)
[2020-12-07] MEDS: ASCORBIC ACID 500 MG TABLET NG SCH ×2 (13:40→20:52)
[2020-12-07] MEDS: cefTRIAXone 1,000 MG in SODIUM CHLORIDE 0.9% 100 ML IV SCH (13:40)
[2020-12-07] MEDS: PANTOPRAZOLE 40 MG VIAL IV SCH (13:40)
[2020-12-07] MEDS ORDERED: POLYVINYL ALCOHOL 1.4% OPH SOLN 15 ML BOTTLE BOTH EYES PRN (14:38)
[2020-12-07] MEDS: allopurinoL 300 MG TABLET PER TUBE SCH (20:52)
[2020-12-07] MEDS: GABAPENTIN 300 MG CAPSULE PER TUBE SCH (20:52)
[2020-12-08] MEDS: INSULIN LISPRO 100 UNIT/ML SUBCUT SCH ×4 (02:07→18:01)
[2020-12-08 04:25] LABS: Basophils % 0.2 % (0.0-0.8); Eosinophils # 0.3 10*3/uL (0.0-0.87); Eosinophils % 6.6 % (0.00-10.9); Hematocrit 35.4 VOL% (42.0-52.0); Hemoglobin 10.7 GM/DL (14.0-18.0); Immature Granulocytes % 0.4 %; Immature Granulocytes Absolute 0.02 #; Lymphocytes # 1.1 10*3/uL (1.4-4.0); Lymphocytes % 23.6 % (21.2-54.2); Mean Corpuscular HGB Conc 30.2 GM/DL (32-36); Mean Corpuscular Volume 90.3 FL (87-102); Neutrophils % 62.2 % (38.7-73.9); Platelet Count 127 T/CUMM (130-400); Red Blood Count 3.92 MC/CUMM (3.8-5.5); Red Cell Distribution Width 15.6 % (9.3-17.3); White Blood Count 4.7 T/CUMM (4-12)
[2020-12-08 04:29] LABS: ABG Base Excess 8.5 MMOL/L (-2.5-2.5); ABG Oxygen Saturation 98.8 % (95-100); ABG PCO2 51.4 MM HG (35-48); ABG PH 7.438 (7.35-7.45); ABG PO2 173.5 MM HG (80-95); ABG TCO2 35.5 MMOL/L (23-27)
[2020-12-08 04:49] LABS: Calcium 8.2 MG/DL (8.5-10.1)
[2020-12-08 04:54] LABS: Alanine Aminotransferase 11 U/L (16-61); Albumin 2.5 G/DL (3.4-5.0); Alkaline Phosphatase 66 U/L (45-117); Aspartate Amino Transferase 16 U/L (0-37); Blood Urea Nitrogen 13 MG/DL (7-18); Calcium 8.4 MG/DL (8.5-10.1); Carbon Dioxide 33 MMOL/L (21-32); Estimated Glom Filtration Rate 155 ML/MIN; Glucose 128 MG/DL (74-106); Osmolality,Calculated 287.8 MOS/KG (273-304); Potassium 3.5 MMOL/L (3.5-5.1); Sodium 144 MMOL/L (136-145); Total Protein 5.6 G/DL (6.4-8.2)
[2020-12-08 04:59] LABS: Osmolality,Calculated 287.8 MOS/KG (273-304); Potassium 3.5 MMOL/L (3.5-5.1)
[2020-12-08] MEDS: LEVOFLOXACIN 750 MG TABLET PER TUBE SCH (06:33)
[2020-12-08] MEDS: CARBIDOPA/LEVODOPA 25-100 MG TABLET PER TUBE SCH ×3 (06:33→18:11)
[2020-12-08] MEDS: ROSUVASTATIN 20 MG TABLET PO SCH (09:17)
[2020-12-08] MEDS: FLUDROCORTISONE 0.1 MG TABLET PER TUBE SCH ×2 (09:17→14:03)
[2020-12-08] MEDS: ASCORBIC ACID 500 MG TABLET NG SCH ×2 (09:18→21:45)
[2020-12-08] MEDS: CHLORHEXIDINE 0.12% ORAL RINSE 60 ML BOTTLE SWISH/SPIT SCH ×2 (09:18→21:45)
[2020-12-08] MEDS: SODIUM CHLORIDE 0.65% NASAL SPRAY 45 ML BOTTLE BOTH NARES SCH ×3 (09:18→22:22)
[2020-12-08] MEDS: ASPIRIN CHEW 81 MG TABLET PO SCH (09:18)
[2020-12-08] MEDS: CHLORHEXIDINE 4% SOLN 118 ML BOTTLE TOP SCH ×2 (09:32→15:58)
[2020-12-08] MEDS ORDERED: POTASSIUM CHLORIDE 20 MEQ PACK NG ONE (10:21)
[2020-12-08] MEDS ORDERED: NOREPINEPHRINE 8 MG in SODIUM CHLORIDE 0.9% 242 ML IV PRN (12:20)
[2020-12-08] MEDS ORDERED: SODIUM CHLORIDE 0.9% 1,000 ML IV SCH (13:30)
[2020-12-08] MEDS: PANTOPRAZOLE 40 MG VIAL IV SCH (14:03)
[2020-12-08] MEDS: cefTRIAXone 1,000 MG in SODIUM CHLORIDE 0.9% 100 ML IV SCH (14:04)
[2020-12-08] MEDS ORDERED: SODIUM BICARBONATE 50 MEQ/50 ML VIAL IV ONE (16:08)
[2020-12-08] MEDS ORDERED: PHENYLEPHRINE DRIP 40 MG/250 ML PREMIX IV ONE (16:09)
[2020-12-08] MEDS ORDERED: NITROPRUSSIDE 50 MG/2 ML VIAL ONE (16:09)
[2020-12-08] MEDS ORDERED: CALCIUM CHLORIDE 1,000 MG/10 ML SYRINGE IV ONE (16:09)
[2020-12-08] MEDS ORDERED: POTASSIUM CHLORIDE RIDER 100 ML IV ONE (16:09)
[2020-12-08] MEDS ORDERED: ALBUMIN 5% 12.5 GM/250 ML VIAL IV ONE ×2 (16:09→16:10)
[2020-12-08] MEDS: allopurinoL 300 MG TABLET PER TUBE SCH (21:45)
[2020-12-08] MEDS: GABAPENTIN 300 MG CAPSULE PER TUBE SCH (21:45)
[2020-12-09] MEDS: INSULIN LISPRO 100 UNIT/ML SUBCUT SCH ×2 (00:45→05:42)
[2020-12-09] MEDS: CHLORHEXIDINE 4% SOLN 118 ML BOTTLE TOP SCH (04:19)
[2020-12-09] MEDS ORDERED: VANCOMYCIN 1,000 MG VIAL ONE (04:25)
[2020-12-09] MEDS ORDERED: VANCOMYCIN 500 MG VIAL ONE (04:25)
[2020-12-09] MEDS ORDERED: PAPAVERINE 60 MG/2 ML VIAL ONE (04:25)
[2020-12-09 04:26] LABS: ABG Base Excess 8.9 MMOL/L (-2.5-2.5); ABG Oxygen Saturation 98.5 % (95-100); ABG PH 7.451 (7.35-7.45); ABG PO2 143.5 MM HG (80-95); ABG TCO2 35.6 MMOL/L (23-27); Eosinophils # 0.3 10*3/uL (0.0-0.87); Eosinophils % 7.2 % (0.00-10.9); Hematocrit 33.7 VOL% (42.0-52.0); Hemoglobin 10.4 GM/DL (14.0-18.0); Immature Granulocytes % 0.3 %; Immature Granulocytes Absolute 0.01 #; Lymphocytes # 0.9 10*3/uL (1.4-4.0); Lymphocytes % 26.1 % (21.2-54.2); Mean Corpuscular HGB Conc 30.9 GM/DL (32-36); Mean Corpuscular Volume 89.4 FL (87-102); Mean Platelet Volume 9.8 FL (9.6-12.0); Monocytes % 6.9 % (1.7-12.7); Neutrophils % 59.5 % (38.7-73.9); Platelet Count 115 T/CUMM (130-400); Red Blood Count 3.77 MC/CUMM (3.8-5.5); Red Cell Distribution Width 14.8 % (9.3-17.3); White Blood Count 3.5 T/CUMM (4-12)
[2020-12-09 04:39] LABS: Calcium 8.4 MG/DL (8.5-10.1); Osmolality,Calculated 292.4 MOS/KG (273-304); Potassium 3.7 MMOL/L (3.5-5.1)
[2020-12-09 04:45] LABS: Hypochromasia 1+; Microcytosis 1+; Platelet Estimate Decreased
[2020-12-09] MEDS ORDERED: CEFUROXIME INJ 1,500 MG in SODIUM CHLORIDE 0.9% 100 ML IV ONE (05:00)
[2020-12-09] MEDS ORDERED: SUFentanil 250 MCG/5 ML AMP ONE ×2 (05:53)
[2020-12-09] MEDS: CARBIDOPA/LEVODOPA 25-100 MG TABLET PER TUBE SCH ×3 (05:59→18:42)
[2020-12-09] MEDS ORDERED: MIDAZOLAM 10 MG/2 ML VIAL ONE ×3 (06:06→08:42)
[2020-12-09 07:25] LABS: ABG Base Excess 9.7 MMOL/L (-2.5-2.5); ABG HCO3 33.4 MMOL/L (20-26); ABG Oxygen Saturation 99.7 % (95-100); ABG PCO2 51.1 MM HG (35-48); ABG PH 7.447 (7.35-7.45); ABG TCO2 31.9 MMOL/L (23-27); Glucose Heart Surgery 130 MG/DL (74-106); Hematocrit Heart Surgery 31.7 PERCENT (42-52); Hemoglobin Heart Surgery 10.3 G/DL (14.0-18.0); Ionized Calcium Arterial 1.17 MMOL/L (1.21-1.46); PCO2 Patient Temp Arterial 51.1 MMHG; PH Patient Temp Arterial 7.447; Patient Temperature 37 CELCIUS; Potassium Heart/CVR 3.5 MMOL/L (3.5-5.1); Sodium Heart/CVR 146 MMOL/L (135-145)
[2020-12-09] MEDS: FLUDROCORTISONE 0.1 MG TABLET PER TUBE SCH (08:12)
[2020-12-09] MEDS: LEVOFLOXACIN 750 MG TABLET PER TUBE SCH (08:12)
[2020-12-09] MEDS: SODIUM CHLORIDE 0.65% NASAL SPRAY 45 ML BOTTLE BOTH NARES SCH (08:13)
[2020-12-09] MEDS: ASCORBIC ACID 500 MG TABLET NG SCH (08:13)
[2020-12-09] MEDS: ASPIRIN CHEW 81 MG TABLET PO SCH (08:13)
[2020-12-09] MEDS: CHLORHEXIDINE 0.12% ORAL RINSE 60 ML BOTTLE SWISH/SPIT SCH ×2 (08:13→20:17)
[2020-12-09] MEDS: ROSUVASTATIN 20 MG TABLET PO SCH (08:13)
[2020-12-09] MEDS ORDERED: VECURONIUM 10 MG VIAL IV ONE ×3 (08:42)
[2020-12-09 09:04] LABS: Hematocrit Heart Surgery 24.1 PERCENT (42-52); Hemoglobin Heart Surgery 7.7 G/DL (14.0-18.0); PCO2 Patient Temp Venous 33.5 MM HG; PH Patient Temp Venous 7.583; PO2 Patient Temp Venous 27.9 MM HG; VBG Base Excess 9.5 MEQ/L (0-4); VBG HCO3 32.9 MEQ/L (24-28); VBG Oxygen Saturation 72.9 %; VBG PCO2 38.7 MMHG (41-51); VBG PH 7.537; VBG PO2 34.5 MMHG (17-40); VBG Total CO2 30.8 MMOL/L
[2020-12-09] MEDS ORDERED: HEPARIN/NACL 0.9% 2 UNITS/ML 1,000 UNIT/500 ML BAG IV ONE (09:12)
[2020-12-09 09:14] LABS: Amorphous Crystals,Urine Few /HPF (Few); Bacteria,Urine Occasional /HPF (Few); Bilirubin,Urine Negative (Negative); Blood, Urine Negative (Negative); Glucose,Urine (UA) Negative (Negative); Ketones,Urine Negative (Negative); Mucus,Urine Occasional /LPF (Occasional); Nitrite,Urine Negative (Negative); Protein,Urine Negative; RBC,Urine 6 /HPF (0-4); Urine Appearance CLEAR (Clear); Urine Color Yellow (Yellow); Urine Specific Gravity 1.012 (1.001-1.035)
[2020-12-09] MEDS ORDERED: PHENYLEPHRINE DRIP 20 MG/250 ML PREMIX IV ONE (09:21)
[2020-12-09] MEDS ORDERED: SODIUM CHLORIDE 0.9% 250 ML IV ONE (09:21)
[2020-12-09] MEDS ORDERED: AMINOCAPROIC ACID 5,000 MG/20 ML VIAL ONE (09:21)
[2020-12-09] MEDS ORDERED: LACTATED RINGERS 1,000 ML IV ONE (09:21)
[2020-12-09] MEDS ORDERED: MINERAL OIL/PETROLATUM OPH OINT 3.5 GM TUBE ONE (09:21)
[2020-12-09] MEDS ORDERED: SODIUM CHLORIDE 0.9% 1,000 ML IV ONE (09:21)
[2020-12-09] MEDS ORDERED: SODIUM CHLORIDE 0.9% 300 ML IV ONE (09:21)
[2020-12-09 09:38] LABS: Hematocrit Heart Surgery 25.1 PERCENT (42-52); Hemoglobin Heart Surgery 8.1 G/DL (14.0-18.0); PCO2 Patient Temp Venous 39.7 MM HG; PH Patient Temp Venous 7.519; PO2 Patient Temp Venous 34.2 MM HG; Potassium Heart/CVR 3.5 MMOL/L (3.5-5.1); VBG HCO3 32.5 MEQ/L (24-28); VBG Oxygen Saturation 79.6 %; VBG PCO2 45.9 MMHG (41-51); VBG PH 7.474; VBG PO2 42.1 MMHG (17-40); VBG Total CO2 31.4 MMOL/L
[2020-12-09] MEDS ORDERED: MANNITOL 100 GM/500 ML BAG IV ONE ×2 (09:42→10:49)
[2020-12-09 10:07] LABS: Hematocrit Heart Surgery 26.1 PERCENT (42-52); Hemoglobin Heart Surgery 8.4 G/DL (14.0-18.0); PCO2 Patient Temp Venous 41.2 MM HG; PH Patient Temp Venous 7.503; PO2 Patient Temp Venous 32.5 MM HG; Potassium Heart/CVR 3.9 MMOL/L (3.5-5.1); VBG Base Excess 8.6 MEQ/L (0-4); VBG Oxygen Saturation 73.9 %; VBG PCO2 45.4 MMHG (41-51); VBG PH 7.473; VBG PO2 37.4 MMHG (17-40); VBG Total CO2 30.9 MMOL/L
[2020-12-09] MEDS ORDERED: CALCIUM CHLORIDE 1,000 MG/10 ML VIAL IV ONE (10:32)
[2020-12-09] MEDS ORDERED: LIDOCAINE 2% 5 ML VIAL ONE (10:48)
[2020-12-09] MEDS ORDERED: MAGNESIUM SULFATE 5 GM/10 ML VIAL IV ONE (10:48)
[2020-12-09] MEDS ORDERED: ALBUMIN 25% 25 GM/100 ML VIAL IV ONE (10:48)
[2020-12-09] MEDS ORDERED: DEXTROSE 5% KCL 20 MEQ 20 MEQ/1,000 ML BAG IV ONE (10:49)
[2020-12-09] MEDS ORDERED: PROTAMINE SULFATE 250 MG/25 ML VIAL IV ONE (10:49)
[2020-12-09] MEDS ORDERED: methylPREDNISolone SOD SUC 1,000 MG/8 ML VIAL ONE (10:49)
[2020-12-09] MEDS ORDERED: FUROSEMIDE 20 MG/2 ML VIAL ONE (10:50)
[2020-12-09] MEDS ORDERED: HEPARIN 10,000 UNIT/10 ML VIAL ONE (10:50)
[2020-12-09] MEDS ORDERED: SODIUM BICARBONATE 50 MEQ/50 ML VIAL IV ONE (10:50)
[2020-12-09 10:59] LABS: ABG Base Excess 7.8 MMOL/L (-2.5-2.5); ABG HCO3 31.6 MMOL/L (20-26); ABG Oxygen Saturation 99.7 % (95-100); ABG PCO2 37.4 MM HG (35-48); ABG PH 7.528 (7.35-7.45); ABG TCO2 28.4 MMOL/L (23-27); Glucose Heart Surgery 223 MG/DL (74-106); Hematocrit Heart Surgery 28.6 PERCENT (42-52); Hemoglobin Heart Surgery 9.2 G/DL (14.0-18.0); Ionized Calcium Arterial 1.23 MMOL/L (1.21-1.46); PCO2 Patient Temp Arterial 37.4 MMHG; PH Patient Temp Arterial 7.528; Patient Temperature 37 CELCIUS; Potassium Heart/CVR 3.4 MMOL/L (3.5-5.1); Sodium Heart/CVR 146 MMOL/L (135-145)
[2020-12-09] MEDS ORDERED: CHLORHEXIDINE 4% SOLN 118 ML BOTTLE TOP PRN (11:24)
[2020-12-09] MEDS ORDERED: VECURONIUM 10 MG VIAL IV PRN ×2 (11:24)
[2020-12-09] MEDS ORDERED: POTASSIUM CHLORIDE RIDER 10 MEQ in PREMIX 1 EACH IV PRN (11:24)
[2020-12-09] MEDS ORDERED: INSULIN REGULAR 100 UNIT/ML IV ONE (11:24)
[2020-12-09] MEDS ORDERED: ACETAMINOPHEN 650 MG SUPP RECTAL PRN (11:24)
[2020-12-09] MEDS ORDERED: DEXTROSE 50% 25 GM/50 ML VIAL IV PRN ×2 (11:24)
[2020-12-09] MEDS ORDERED: INSULIN REGULAR 100 UNIT/ML IV PRN (11:24)
[2020-12-09] MEDS ORDERED: MIDAZOLAM 10 MG/2 ML VIAL IV PRN (11:24)
[2020-12-09] MEDS ORDERED: MORPHINE 10 MG/1 ML VIAL IV PRN (11:24)
[2020-12-09] MEDS ORDERED: MIDAZOLAM 2 MG/2 ML VIAL IV PRN (11:24)
[2020-12-09] MEDS ORDERED: CALCIUM CHLORIDE 1,000 MG/10 ML SYRINGE IV PRN (11:24)
[2020-12-09] MEDS ORDERED: PHENYLEPHRINE DRIP 40 MG/250 ML PREMIX IV PRN (11:24)
[2020-12-09] MEDS ORDERED: NITROPRUSSIDE 100 MG in DEXTROSE 5% 250 ML IV PRN (11:24)
[2020-12-09] MEDS ORDERED: MAGNESIUM SULF RIDER 2 GM/50 ML PREMIX IV PRN (11:24)
[2020-12-09] MEDS ORDERED: MAGNESIUM SULF RIDER 4 GM/100 ML PREMIX IV PRN (11:24)
[2020-12-09] MEDS ORDERED: LACTATED RINGERS 250 ML IV PRN (11:24)
[2020-12-09] MEDS ORDERED: INSULIN REGULAR DRIP 100 ML IV SCH (11:30)
[2020-12-09] MEDS ORDERED: SEVOFLURANE 1 UNIT/15 MINUTE INH ONE (11:50)
[2020-12-09] MEDS: SODIUM CHLORIDE 0.45% 1,000 ML IV SCH ×2 (11:52→11:53)
[2020-12-09 12:29] LABS: ABG Base Excess 7.8 MMOL/L (-2.5-2.5); ABG HCO3 31.6 MMOL/L (20-26); ABG Oxygen Saturation 99.6 % (95-100); ABG PCO2 38.6 MM HG (35-48); ABG PH 7.516 (7.35-7.45); ABG TCO2 27.7 MMOL/L (23-27); Glucose Heart Surgery 260 MG/DL (74-106); Hematocrit Heart Surgery 35.2 PERCENT (42-52); Hemoglobin Heart Surgery 11.4 G/DL (14.0-18.0); Potassium Heart/CVR 3.4 MMOL/L (3.5-5.1)
[2020-12-09] MEDS: POTASSIUM CHLORIDE RIDER 20 MEQ in PREMIX 1 EACH IV PRN ×3 (12:33→22:02)
[2020-12-09 12:35] LABS: Basophils % 0.3 % (0.0-0.8); Eosinophils # 0.1 10*3/uL (0.0-0.87); Eosinophils % 1.5 % (0.00-10.9); Hematocrit 31.6 VOL% (42.0-52.0); Hemoglobin 10.2 GM/DL (14.0-18.0); Immature Granulocytes % 1.3 %; Immature Granulocytes Absolute 0.05 #; Lymphocytes # 0.5 10*3/uL (1.4-4.0); Lymphocytes % 11.9 % (21.2-54.2); Mean Corpuscular HGB Conc 32.3 GM/DL (32-36); Mean Corpuscular Volume 86.8 FL (87-102); Mean Platelet Volume 9.9 FL (9.6-12.0); Monocytes % 4.8 % (1.7-12.7); Neutrophils % 80.2 % (38.7-73.9); Red Blood Count 3.64 MC/CUMM (3.8-5.5); Red Cell Distribution Width 14.9 % (9.3-17.3); White Blood Count 3.9 T/CUMM (4-12)
[2020-12-09 12:36] LABS: Platelet Count 97 T/CUMM (130-400)
[2020-12-09 12:47] LABS: INR 1.2; Partial Thromboplastin Time 30.1 SECS (23.9-33.8)
[2020-12-09 12:51] LABS: Albumin 2.9 G/DL (3.4-5.0); Bilirubin,Total 1.2 MG/DL (0.2-1.0); CKMB % 9.2 %; Calcium 8.6 MG/DL (8.5-10.1); Potassium 3.5 MMOL/L (3.5-5.1); Total Protein 4.9 G/DL (6.4-8.2)
[2020-12-09 12:55] LABS: High Sensitive Troponin I* 6122.9 ng/L (0-78)
[2020-12-09 13:03] LABS: Anisocytosis Slight; Ovalocytes Few; Platelet Estimate Decreased
[2020-12-09] MEDS: cefTRIAXone 1,000 MG in SODIUM CHLORIDE 0.9% 100 ML IV SCH (14:03)
[2020-12-09 14:20] LABS: ABG Base Excess 7.4 MMOL/L (-2.5-2.5); ABG HCO3 31.3 MMOL/L (20-26); ABG Oxygen Saturation 99.9 % (95-100); ABG PCO2 38.4 MM HG (35-48); ABG PH 7.514 (7.35-7.45); Glucose Heart Surgery 272 MG/DL (74-106); Hematocrit Heart Surgery 30.8 PERCENT (42-52); Potassium Heart/CVR 3.8 MMOL/L (3.5-5.1)
[2020-12-09] MEDS: ALBUMIN 5% 12.5 GM/250 ML VIAL IV PRN ×3 (15:00→20:01)
[2020-12-09] MEDS: LACTATED RINGERS 1,000 ML IV PRN ×2 (17:15→19:37)
[2020-12-09 17:17] LABS: ABG Base Excess 6.4 MMOL/L (-2.5-2.5); ABG HCO3 30.3 MMOL/L (20-26); ABG Oxygen Saturation 99.2 % (95-100); ABG PCO2 40.6 MM HG (35-48); ABG PH 7.483 (7.35-7.45); ABG TCO2 27.8 MMOL/L (23-27); Glucose Heart Surgery 241 MG/DL (74-106); Hematocrit Heart Surgery 29.2 PERCENT (42-52); Hemoglobin Heart Surgery 9.4 G/DL (14.0-18.0); Potassium Heart/CVR 3.8 MMOL/L (3.5-5.1)
[2020-12-09] MEDS ORDERED: FUROSEMIDE 40 MG/4 ML VIAL IV PRN (18:37)
[2020-12-09] MEDS: CEFUROXIME INJ 1,500 MG in SODIUM CHLORIDE 0.9% 100 ML IV SCH (18:42)
[2020-12-09] MEDS: KETOROLAC 30 MG/1 ML VIAL IV SCH (18:43)
[2020-12-09 19:29] LABS: ABG Base Excess 4.2 MMOL/L (-2.5-2.5); ABG HCO3 28.2 MMOL/L (20-26); ABG Oxygen Saturation 98.3 % (95-100); ABG PCO2 43.2 MM HG (35-48); ABG PH 7.434 (7.35-7.45); ABG TCO2 26.4 MMOL/L (23-27); Glucose Heart Surgery 193 MG/DL (74-106); Hematocrit Heart Surgery 29.5 PERCENT (42-52); Hemoglobin Heart Surgery 9.5 G/DL (14.0-18.0); Potassium Heart/CVR 3.8 MMOL/L (3.5-5.1)
[2020-12-09 19:51] LABS: CKMB % 7.8 %
[2020-12-09 19:52] LABS: High Sensitive Troponin I* 5396.5 ng/L (0-78)
[2020-12-09 21:54] LABS: ABG Base Excess 6.1 MMOL/L (-2.5-2.5); ABG HCO3 29.9 MMOL/L (20-26); ABG Oxygen Saturation 97.8 % (95-100); ABG PCO2 44.5 MM HG (35-48); ABG PH 7.448 (7.35-7.45); ABG PO2 95.6 MM HG (80-95); ABG TCO2 28.2 MMOL/L (23-27); Glucose Heart Surgery 152 MG/DL (74-106); Hematocrit Heart Surgery 29.3 PERCENT (42-52); Hemoglobin Heart Surgery 9.4 G/DL (14.0-18.0); Potassium Heart/CVR 3.5 MMOL/L (3.5-5.1)
[2020-12-09 23:00] LABS: ABG Base Excess 6.1 MMOL/L (-2.5-2.5); ABG HCO3 29.9 MMOL/L (20-26); ABG Oxygen Saturation 97.3 % (95-100); ABG PO2 89.8 MM HG (80-95); ABG TCO2 28.5 MMOL/L (23-27); Glucose Heart Surgery 141 MG/DL (74-106); Hematocrit Heart Surgery 29.5 PERCENT (42-52); Hemoglobin Heart Surgery 9.5 G/DL (14.0-18.0); Potassium Heart/CVR 4.3 MMOL/L (3.5-5.1)
[2020-12-10] MEDS: KETOROLAC 30 MG/1 ML VIAL IV SCH ×4 (00:06→19:30)
[2020-12-10] MEDS: MORPHINE 4 MG/1 ML VIAL IV PRN ×2 (00:36→12:25)
[2020-12-10 01:14] LABS: ABG Base Excess 6.3 MMOL/L (-2.5-2.5); ABG HCO3 30.1 MMOL/L (20-26); ABG Oxygen Saturation 96.9 % (95-100); ABG PCO2 47.3 MM HG (35-48); ABG PH 7.431 (7.35-7.45); ABG PO2 84.2 MM HG (80-95); ABG TCO2 28.8 MMOL/L (23-27); Glucose Heart Surgery 156 MG/DL (74-106); Hematocrit Heart Surgery 29.4 PERCENT (42-52); Hemoglobin Heart Surgery 9.5 G/DL (14.0-18.0); Potassium Heart/CVR 3.9 MMOL/L (3.5-5.1)
[2020-12-10] MEDS: ALBUMIN 5% 12.5 GM/250 ML VIAL IV PRN ×4 (01:29→21:10)
[2020-12-10 04:21] LABS: ABG Base Excess 6.3 MMOL/L (-2.5-2.5); ABG HCO3 30.2 MMOL/L (20-26); ABG Oxygen Saturation 99.8 % (95-100); ABG PCO2 47.3 MM HG (35-48); ABG PH 7.431 (7.35-7.45); ABG PO2 87.1 MM HG (80-95); ABG TCO2 28.9 MMOL/L (23-27); Glucose Heart Surgery 159 MG/DL (74-106); Hematocrit Heart Surgery 28.7 PERCENT (42-52); Hemoglobin Heart Surgery 9.2 G/DL (14.0-18.0); Potassium Heart/CVR 3.9 MMOL/L (3.5-5.1)
[2020-12-10 04:26] LABS: Basophils % 0.1 % (0.0-0.8); Hematocrit 29.7 VOL% (42.0-52.0); Hemoglobin 9.2 GM/DL (14.0-18.0); Immature Granulocytes % 0.4 %; Immature Granulocytes Absolute 0.04 #; Lymphocytes # 0.3 10*3/uL (1.4-4.0); Lymphocytes % 3.5 % (21.2-54.2); Mean Corpuscular Volume 87.4 FL (87-102); Mean Platelet Volume 10.5 FL (9.6-12.0); Monocytes % 4.1 % (1.7-12.7); Neutrophils % 91.9 % (38.7-73.9); Platelet Count 123 T/CUMM (130-400); Red Cell Distribution Width 15.9 % (9.3-17.3); White Blood Count 9.4 T/CUMM (4-12)
[2020-12-10 04:44] LABS: Hypochromasia 1+; Lymphocytes 3 % (20-55); Microcytosis 1+; Segmented Neutrophils 92 % (50-85); Total Cells Counted 100
[2020-12-10 04:45] LABS: Albumin 3.4 G/DL (3.4-5.0); Bilirubin,Direct 0.29 MG/DL (0.0-0.20); Bilirubin,Total 0.7 MG/DL (0.2-1.0); Calcium 8.4 MG/DL (8.5-10.1); Osmolality,Calculated 293.6 MOS/KG (273-304); Potassium 3.9 MMOL/L (3.5-5.1); Total Protein 5.7 G/DL (6.4-8.2)
[2020-12-10 04:52] LABS: Calcium 8.1 MG/DL (8.5-10.1); Osmolality,Calculated 295.4 MOS/KG (273-304)
[2020-12-10 04:59] LABS: CKMB % 8.1 %; High Sensitive Troponin I* 5220.1 ng/L (0-78)
[2020-12-10 05:49] LABS: ABG Base Excess 5.9 MMOL/L (-2.5-2.5); ABG HCO3 29.8 MMOL/L (20-26); ABG Oxygen Saturation 97.5 % (95-100); ABG PCO2 46.1 MM HG (35-48); ABG PH 7.435 (7.35-7.45); ABG PO2 89.7 MM HG (80-95); ABG TCO2 28.1 MMOL/L (23-27); Glucose Heart Surgery 155 MG/DL (74-106); Hematocrit Heart Surgery 30.9 PERCENT (42-52); Potassium Heart/CVR 3.8 MMOL/L (3.5-5.1)
[2020-12-10] MEDS: CARBIDOPA/LEVODOPA 25-100 MG TABLET PER TUBE SCH ×3 (06:01→19:27)
[2020-12-10 06:33] LABS: ABG Base Excess 4.7 MMOL/L (-2.5-2.5); ABG HCO3 28.6 MMOL/L (20-26); ABG PO2 79.3 MM HG (80-95); ABG TCO2 30.1 MMOL/L (23-27); Glucose Heart Surgery 146 MG/DL (74-106); Hematocrit Heart Surgery 31.5 PERCENT (42-52); Hemoglobin Heart Surgery 10.2 G/DL (14.0-18.0); Potassium Heart/CVR 3.9 MMOL/L (3.5-5.1)
[2020-12-10] MEDS: CEFUROXIME INJ 1,500 MG in SODIUM CHLORIDE 0.9% 100 ML IV SCH ×2 (08:36→19:27)
[2020-12-10 08:39] LABS: ABG Base Excess 5.5 MMOL/L (-2.5-2.5); ABG HCO3 29.4 MMOL/L (20-26); ABG Oxygen Saturation 98.4 % (95-100); ABG PCO2 42.6 MM HG (35-48); ABG PH 7.455 (7.35-7.45); ABG PO2 98.2 MM HG (80-95); ABG TCO2 27.3 MMOL/L (23-27)
[2020-12-10] MEDS: CARBIDOPA/LEVODOPA 25-100 MG TABLET PO SCH ×2 (09:03→17:41)
[2020-12-10] MEDS: CHLORHEXIDINE 0.12% ORAL RINSE 60 ML BOTTLE SWISH/SPIT SCH ×2 (09:04→20:47)
[2020-12-10 09:22] LABS: ABG Base Excess 4.8 MMOL/L (-2.5-2.5); ABG HCO3 28.7 MMOL/L (20-26); ABG PCO2 47.8 MM HG (35-48); ABG PH 7.409 (7.35-7.45); ABG PO2 99.7 MM HG (80-95); ABG TCO2 27.6 MMOL/L (23-27)
[2020-12-10 11:57] LABS: CKMB % 7.1 %; High Sensitive Troponin I* 5800.8 ng/L (0-78)
[2020-12-10] MEDS: rOPINIRole 0.25 MG TABLET PO SCH ×2 (17:41→20:48)
[2020-12-10 17:53] LABS: VBG Base Excess 6.9 MEQ/L (0-4); VBG HCO3 30.2 MEQ/L (24-28); VBG Oxygen Saturation 67.8 %; VBG PCO2 44.8 MMHG (41-51); VBG PH 7.457; VBG PO2 36.5 MMHG (17-40); VBG Total CO2 29.1 MMOL/L
[2020-12-10] MEDS: SODIUM CHLORIDE 0.45% 1,000 ML IV SCH ×2 (17:56→17:57)
[2020-12-10] MEDS ORDERED: ACETAMINOPHEN 325 MG TABLET PO PRN (20:28)
[2020-12-10] MEDS: PIPERACILLIN/TAZOBACTAM 3,375 MG in SODIUM CHLORIDE 0.9% 100 ML IV SCH (20:49)
[2020-12-10] MEDS ORDERED: FUROSEMIDE 40 MG/4 ML VIAL IV ONE (21:30)
[2020-12-10] MEDS: DEXMEDETOMIDINE 200 MCG in SODIUM CHLORIDE 0.9% 48 ML IV PRN (22:23)
[2020-12-11] MEDS: KETOROLAC 30 MG/1 ML VIAL IV SCH ×4 (00:15→18:13)
[2020-12-11] MEDS: MORPHINE 4 MG/1 ML VIAL IV PRN ×3 (01:30→22:45)
[2020-12-11 04:44] LABS: ABG Base Excess 6.7 MMOL/L (-2.5-2.5); ABG HCO3 30.6 MMOL/L (20-26); ABG Oxygen Saturation 99.7 % (95-100); ABG PCO2 37.9 MM HG (35-48); ABG PH 7.509 (7.35-7.45); ABG TCO2 27.6 MMOL/L (23-27)
[2020-12-11 04:49] LABS: Eosinophils % 0.2 % (0.00-10.9); Hematocrit 28.9 VOL% (42.0-52.0); Immature Granulocytes % 0.9 %; Immature Granulocytes Absolute 0.06 #; Lymphocytes # 0.6 10*3/uL (1.4-4.0); Lymphocytes % 8.7 % (21.2-54.2); Mean Corpuscular HGB Conc 31.1 GM/DL (32-36); Mean Corpuscular Volume 87.6 FL (87-102); Mean Platelet Volume 10.7 FL (9.6-12.0); Monocytes % 5.6 % (1.7-12.7); Neutrophils % 84.6 % (38.7-73.9); Platelet Count 109 T/CUMM (130-400); Red Cell Distribution Width 16.1 % (9.3-17.3); White Blood Count 6.6 T/CUMM (4-12)
[2020-12-11 05:07] LABS: Albumin 3.3 G/DL (3.4-5.0); Bilirubin,Direct 0.37 MG/DL (0.0-0.20); Bilirubin,Total 0.8 MG/DL (0.2-1.0); Calcium 8.3 MG/DL (8.5-10.1); Potassium 3.5 MMOL/L (3.5-5.1); Total Protein 5.7 G/DL (6.4-8.2)
[2020-12-11 05:08] LABS: CKMB % 3.4 %
[2020-12-11 05:09] LABS: High Sensitive Troponin I* 5587.4 ng/L (0-78)
[2020-12-11] MEDS: PIPERACILLIN/TAZOBACTAM 3,375 MG in SODIUM CHLORIDE 0.9% 100 ML IV SCH (05:47)
[2020-12-11] MEDS: DEXMEDETOMIDINE 200 MCG in SODIUM CHLORIDE 0.9% 48 ML IV PRN ×3 (05:47→18:08)
[2020-12-11] MEDS: POTASSIUM CHLORIDE RIDER 20 MEQ in PREMIX 1 EACH IV PRN (05:48)
[2020-12-11] MEDS: CARBIDOPA/LEVODOPA 25-100 MG TABLET PER TUBE SCH ×3 (06:04→18:11)
[2020-12-11 06:48] LABS: Hypochromasia 2+; Microcytosis 1+
[2020-12-11 06:49] LABS: Platelet Estimate Adequate
[2020-12-11] MEDS ORDERED: INSULIN GLARGINE 100 UNIT/ML SUBCUT SCH (09:00)
[2020-12-11] MEDS: CARBIDOPA/LEVODOPA 25-100 MG TABLET PO SCH ×2 (09:29→15:16)
[2020-12-11] MEDS: rOPINIRole 0.25 MG TABLET PO SCH ×3 (09:30→20:19)
[2020-12-11] MEDS: MEROPENEM 500 MG in SODIUM CHLORIDE 0.9% 100 ML IV SCH ×3 (09:30→20:18)
[2020-12-11] MEDS: SODIUM CHLOR 0.45% KCL 20 MEQ 20 MEQ/1,000 ML BAG IV SCH (09:30)
[2020-12-11] MEDS: NOURIANZ PER TUBE SCH (09:31)
[2020-12-11] MEDS ORDERED: POTASSIUM CHLORIDE 20 MEQ/15 ML UDCUP NG ONE (10:41)
[2020-12-11] MEDS: CHLORHEXIDINE 0.12% ORAL RINSE 60 ML BOTTLE SWISH/SPIT SCH ×2 (12:07→20:20)
[2020-12-11] MEDS: APIXABAN 5 MG TABLET PO SCH ×2 (12:10→20:19)
[2020-12-11] MEDS: METOPROLOL TARTRATE 25 MG TABLET NG SCH ×2 (12:10→20:19)
[2020-12-11] MEDS: ASPIRIN CHEW 81 MG TABLET PO SCH (12:10)
[2020-12-11] MEDS: ASCORBIC ACID 500 MG TABLET NG SCH ×2 (12:11→20:19)
[2020-12-11] MEDS: INSULIN LISPRO 100 UNIT/ML SUBCUT SCH ×5 (12:13→23:53)
[2020-12-11 12:25] LABS: ABG Base Excess 6.3 MMOL/L (-2.5-2.5); ABG HCO3 30.1 MMOL/L (20-26); ABG Oxygen Saturation 99.6 % (95-100); ABG PCO2 41.1 MM HG (35-48); ABG PH 7.476 (7.35-7.45); ABG TCO2 27.8 MMOL/L (23-27)
[2020-12-11] MEDS: HEPARIN/NACL 0.9% 2 UNITS/ML 1,000 UNIT/500 ML BAG IV SCH (18:44)
[2020-12-11] MEDS: ROSUVASTATIN 20 MG TABLET NG SCH (20:19)
[2020-12-11] MEDS: DEXMEDETOMIDINE 400 MCG in SODIUM CHLORIDE 0.9% 96 ML IV PRN (22:45)
[2020-12-12] MEDS: KETOROLAC 30 MG/1 ML VIAL IV SCH ×4 (02:10→18:22)
[2020-12-12] MEDS: MEROPENEM 500 MG in SODIUM CHLORIDE 0.9% 100 ML IV SCH ×4 (02:10→21:34)
[2020-12-12] MEDS ORDERED: DILTIAZEM 25 MG/5 ML VIAL IV ONE (02:32)
[2020-12-12] MEDS ORDERED: AMIODARONE INJ 150 MG in DEXTROSE 5% 100 ML IV ONE (02:32)
[2020-12-12] MEDS ORDERED: AMIODARONE 450 MG/9 ML VIAL IV ONE (02:33)
[2020-12-12] MEDS ORDERED: DILTIAZEM 50 MG/10 ML VIAL IV ONE (02:34)
[2020-12-12] MEDS ORDERED: AMIODARONE 150 MG/3 ML VIAL ONE (02:34)
[2020-12-12 02:47] LABS: ABG Base Excess 5.3 MMOL/L (-2.5-2.5); ABG HCO3 29.2 MMOL/L (20-26); ABG Oxygen Saturation 99.5 % (95-100); ABG PCO2 40.1 MM HG (35-48); ABG PH 7.472 (7.35-7.45); ABG TCO2 26.8 MMOL/L (23-27)
[2020-12-12 02:48] LABS: Eosinophils % 0.7 % (0.00-10.9); Hematocrit 29.2 VOL% (42.0-52.0); Hemoglobin 9.1 GM/DL (14.0-18.0); Immature Granulocytes % 0.9 %; Immature Granulocytes Absolute 0.05 #; Lymphocytes # 0.6 10*3/uL (1.4-4.0); Lymphocytes % 10.9 % (21.2-54.2); Mean Corpuscular HGB Conc 31.2 GM/DL (32-36); Mean Corpuscular Volume 86.9 FL (87-102); Mean Platelet Volume 10.5 FL (9.6-12.0); Monocytes % 5.9 % (1.7-12.7); Neutrophils % 81.6 % (38.7-73.9); Platelet Count 113 T/CUMM (130-400); Red Blood Count 3.36 MC/CUMM (3.8-5.5); Red Cell Distribution Width 15.7 % (9.3-17.3); White Blood Count 5.4 T/CUMM (4-12)
[2020-12-12] MEDS ORDERED: AMIODARONE INJ 450 MG in DEXTROSE 5% 241 ML IV SCH (03:00)
[2020-12-12 03:14] LABS: Bilirubin,Direct 0.3 MG/DL (0.0-0.20)
[2020-12-12 03:15] LABS: Osmolality,Calculated 294.1 MOS/KG (273-304); Potassium 3.8 MMOL/L (3.5-5.1)
[2020-12-12] MEDS: INSULIN LISPRO 100 UNIT/ML SUBCUT SCH ×5 (04:12→21:34)
[2020-12-12] MEDS: CARBIDOPA/LEVODOPA 25-100 MG TABLET PER TUBE SCH ×3 (06:18→21:34)
[2020-12-12] MEDS: METOPROLOL TARTRATE 25 MG TABLET NG SCH ×2 (08:54→21:34)
[2020-12-12] MEDS: rOPINIRole 0.25 MG TABLET PO SCH ×3 (08:54→21:35)
[2020-12-12] MEDS: ASPIRIN CHEW 81 MG TABLET PO SCH (08:55)
[2020-12-12] MEDS: NOURIANZ PER TUBE SCH (08:55)
[2020-12-12] MEDS: ASCORBIC ACID 500 MG TABLET NG SCH ×2 (08:55→21:35)
[2020-12-12] MEDS: INSULIN GLARGINE 100 UNIT/ML SUBCUT SCH (08:57)
[2020-12-12] MEDS ORDERED: ENOXAPARIN 40 MG/0.4 ML SYRINGE SUBCUT SCH (09:00)
[2020-12-12] MEDS: CARBIDOPA/LEVODOPA 25-100 MG TABLET PO SCH ×2 (09:02→18:17)
[2020-12-12] MEDS: APIXABAN 5 MG TABLET PO SCH ×2 (09:05→21:34)
[2020-12-12] MEDS: DILTIAZEM INJ 100 MG in SODIUM CHLORIDE 0.9% 100 ML IV SCH (09:14)
[2020-12-12] MEDS: CHLORHEXIDINE 0.12% ORAL RINSE 60 ML BOTTLE SWISH/SPIT SCH ×2 (09:22→21:35)
[2020-12-12] MEDS: SODIUM CHLOR 0.45% KCL 20 MEQ 20 MEQ/1,000 ML BAG IV SCH (09:22)
[2020-12-12] MEDS ORDERED: POTASSIUM CHLORIDE 20 MEQ/15 ML UDCUP NG ONE (10:02)
[2020-12-12] MEDS: AMIODARONE INJ 450 MG in DEXTROSE 5% 241 ML IV SCH (11:43)
[2020-12-12] MEDS: HEPARIN/NACL 0.9% 2 UNITS/ML 1,000 UNIT/500 ML BAG IV SCH (19:00)
[2020-12-12] MEDS: ROSUVASTATIN 20 MG TABLET NG SCH (21:34)
[2020-12-12] MEDS: MORPHINE 4 MG/1 ML VIAL IV PRN (21:35)
[2020-12-13] MEDS: INSULIN LISPRO 100 UNIT/ML SUBCUT SCH ×6 (00:07→20:13)
[2020-12-13] MEDS: DEXMEDETOMIDINE 400 MCG in SODIUM CHLORIDE 0.9% 96 ML IV PRN ×3 (01:13→16:41)
[2020-12-13] MEDS: KETOROLAC 30 MG/1 ML VIAL IV SCH ×4 (01:13→19:57)
[2020-12-13] MEDS: DILTIAZEM INJ 100 MG in SODIUM CHLORIDE 0.9% 100 ML IV SCH (02:39)
[2020-12-13] MEDS: AMIODARONE 200 MG TABLET NG SCH ×3 (02:59→20:14)
[2020-12-13] MEDS: MEROPENEM 500 MG in SODIUM CHLORIDE 0.9% 100 ML IV SCH ×4 (02:59→20:14)
[2020-12-13] MEDS: MORPHINE 4 MG/1 ML VIAL IV PRN ×4 (02:59→23:01)
[2020-12-13] MEDS: AMIODARONE INJ 450 MG in DEXTROSE 5% 241 ML IV SCH (03:01)
[2020-12-13 04:53] LABS: ABG Base Excess 5.2 MMOL/L (-2.5-2.5); ABG HCO3 29.2 MMOL/L (20-26); ABG Oxygen Saturation 99.7 % (95-100); ABG PCO2 44.5 MM HG (35-48); ABG PH 7.438 (7.35-7.45); ABG TCO2 27.4 MMOL/L (23-27)
[2020-12-13 05:03] LABS: Basophils % 0.2 % (0.0-0.8); Eosinophils # 0.1 10*3/uL (0.0-0.87); Eosinophils % 2.1 % (0.00-10.9); Hemoglobin 9.6 GM/DL (14.0-18.0); Immature Granulocytes % 1.5 %; Immature Granulocytes Absolute 0.07 #; Lymphocytes # 0.7 10*3/uL (1.4-4.0); Lymphocytes % 15.8 % (21.2-54.2); Mean Corpuscular Volume 85.5 FL (87-102); Mean Platelet Volume 10.6 FL (9.6-12.0); Monocytes % 7.5 % (1.7-12.7); Neutrophils % 72.9 % (38.7-73.9); Platelet Count 132 T/CUMM (130-400); Red Blood Count 3.51 MC/CUMM (3.8-5.5); Red Cell Distribution Width 15.4 % (9.3-17.3); White Blood Count 4.7 T/CUMM (4-12)
[2020-12-13 05:19] LABS: Osmolality,Calculated 288.4 MOS/KG (273-304); Potassium 4.3 MMOL/L (3.5-5.1)
[2020-12-13] MEDS: CARBIDOPA/LEVODOPA 25-100 MG TABLET PER TUBE SCH ×3 (06:13→19:56)
[2020-12-13] MEDS ORDERED: FUROSEMIDE 40 MG/4 ML VIAL IV ONE (08:22)
[2020-12-13] MEDS: INSULIN GLARGINE 100 UNIT/ML SUBCUT SCH (08:25)
[2020-12-13] MEDS: ASPIRIN CHEW 81 MG TABLET PO SCH (08:26)
[2020-12-13] MEDS: NOURIANZ PER TUBE SCH (08:26)
[2020-12-13] MEDS: METOPROLOL TARTRATE 25 MG TABLET NG SCH ×2 (08:26→20:14)
[2020-12-13] MEDS: ASCORBIC ACID 500 MG TABLET NG SCH ×2 (08:26→20:14)
[2020-12-13] MEDS: rOPINIRole 0.25 MG TABLET PO SCH ×3 (08:26→20:14)
[2020-12-13] MEDS: APIXABAN 5 MG TABLET PO SCH ×2 (08:26→20:14)
[2020-12-13] MEDS: CHLORHEXIDINE 0.12% ORAL RINSE 60 ML BOTTLE SWISH/SPIT SCH ×2 (08:28→20:14)
[2020-12-13] MEDS: SODIUM CHLOR 0.45% KCL 20 MEQ 20 MEQ/1,000 ML BAG IV SCH (08:33)
[2020-12-13] MEDS: CARBIDOPA/LEVODOPA 25-100 MG TABLET PO SCH ×2 (09:58→17:29)
[2020-12-13] MEDS: FUROSEMIDE 40 MG/4 ML VIAL IV SCH (15:31)
[2020-12-13] MEDS: LEVALBUTEROL 1.25 MG/3 ML NEB RESP TX SCH ×2 (15:33→23:16)
[2020-12-13] MEDS: HEPARIN/NACL 0.9% 2 UNITS/ML 1,000 UNIT/500 ML BAG IV SCH (18:47)
[2020-12-13] MEDS: ROSUVASTATIN 20 MG TABLET NG SCH (20:14)
[2020-12-14] MEDS: DEXMEDETOMIDINE 400 MCG in SODIUM CHLORIDE 0.9% 96 ML IV PRN ×2 (00:16→07:18)
[2020-12-14] MEDS: INSULIN LISPRO 100 UNIT/ML SUBCUT SCH ×6 (00:38→20:49)
[2020-12-14] MEDS: KETOROLAC 30 MG/1 ML VIAL IV SCH ×4 (00:38→18:33)
[2020-12-14] MEDS: MEROPENEM 500 MG in SODIUM CHLORIDE 0.9% 100 ML IV SCH ×4 (03:13→20:28)
[2020-12-14 05:06] LABS: Basophils % 0.2 % (0.0-0.8); Eosinophils # 0.2 10*3/uL (0.0-0.87); Eosinophils % 2.9 % (0.00-10.9); Hematocrit 31.4 VOL% (42.0-52.0); Hemoglobin 9.9 GM/DL (14.0-18.0); Immature Granulocytes % 1.8 %; Lymphocytes # 1.3 10*3/uL (1.4-4.0); Lymphocytes % 22.9 % (21.2-54.2); Mean Corpuscular HGB Conc 31.5 GM/DL (32-36); Mean Corpuscular Volume 85.6 FL (87-102); Mean Platelet Volume 10.5 FL (9.6-12.0); Monocytes % 6.8 % (1.7-12.7); Neutrophils % 65.4 % (38.7-73.9); Platelet Count 166 T/CUMM (130-400); Red Blood Count 3.67 MC/CUMM (3.8-5.5); Red Cell Distribution Width 15.1 % (9.3-17.3); White Blood Count 5.5 T/CUMM (4-12)
[2020-12-14 05:07] LABS: Allen Test Positive; Pt O2 Delivery Device Ventilator
[2020-12-14 05:08] LABS: ABG Base Excess 7.5 MMOL/L (-2.5-2.5); ABG Oxygen Saturation 97.2 % (95-100); ABG PCO2 44.5 MM HG (35-48); ABG PH 7.474 (7.35-7.45); ABG PO2 93.2 MM HG (80-95); ABG TCO2 33.3 MMOL/L (23-27)
[2020-12-14 05:38] LABS: Calcium 8.2 MG/DL (8.5-10.1); Osmolality,Calculated 282.5 MOS/KG (273-304); Potassium 4.5 MMOL/L (3.5-5.1)
[2020-12-14] MEDS: LEVALBUTEROL 1.25 MG/3 ML NEB RESP TX SCH ×3 (06:52→23:31)
[2020-12-14] MEDS: CARBIDOPA/LEVODOPA 25-100 MG TABLET PER TUBE SCH ×3 (07:21→18:29)
[2020-12-14] MEDS: FUROSEMIDE 40 MG/4 ML VIAL IV SCH ×2 (07:25→15:49)
[2020-12-14] MEDS: CHLORHEXIDINE 0.12% ORAL RINSE 60 ML BOTTLE SWISH/SPIT SCH ×2 (08:57→20:28)
[2020-12-14] MEDS ORDERED: OXYMETAZOLINE 0.05% NASAL SPRAY 15 ML BOTTLE BOTH NARES PRN (09:03)
[2020-12-14] MEDS ORDERED: ALBUTEROL/IPRATROPIUM 3 ML NEB RESP TX PRN (09:09)
[2020-12-14] MEDS: INSULIN GLARGINE 100 UNIT/ML SUBCUT SCH (09:56)
[2020-12-14] MEDS: DOCUSATE SODIUM 100 MG/10 ML UDCUP PO SCH ×2 (10:56→20:27)
[2020-12-14] MEDS: ASPIRIN CHEW 81 MG TABLET PO SCH (10:56)
[2020-12-14] MEDS: CARBIDOPA/LEVODOPA 25-100 MG TABLET PO SCH ×2 (10:56→15:43)
[2020-12-14] MEDS: rOPINIRole 0.25 MG TABLET PO SCH ×3 (10:56→20:28)
[2020-12-14] MEDS: ASCORBIC ACID 500 MG TABLET NG SCH ×2 (10:56→20:28)
[2020-12-14] MEDS: AMIODARONE 200 MG TABLET NG SCH ×2 (10:56→20:27)
[2020-12-14] MEDS: NOURIANZ PER TUBE SCH (10:56)
[2020-12-14] MEDS: METOPROLOL TARTRATE 25 MG TABLET NG SCH ×2 (10:56→20:28)
[2020-12-14] MEDS: APIXABAN 5 MG TABLET PO SCH ×2 (10:56→20:27)
[2020-12-14] MEDS: ROSUVASTATIN 20 MG TABLET NG SCH (20:27)
[2020-12-15] MEDS: ONDANSETRON 4 MG/2 ML VIAL IV PRN ×2 (00:30→06:22)
[2020-12-15] MEDS: INSULIN LISPRO 100 UNIT/ML SUBCUT SCH ×7 (00:57→23:22)
[2020-12-15] MEDS: MEROPENEM 500 MG in SODIUM CHLORIDE 0.9% 100 ML IV SCH ×4 (02:56→20:06)
[2020-12-15 05:40] LABS: Basophils % 0.2 % (0.0-0.8); Eosinophils # 0.3 10*3/uL (0.0-0.87); Eosinophils % 3.2 % (0.00-10.9); Hematocrit 33.1 VOL% (42.0-52.0); Hemoglobin 10.7 GM/DL (14.0-18.0); Immature Granulocytes % 1.4 %; Immature Granulocytes Absolute 0.12 #; Lymphocytes # 0.7 10*3/uL (1.4-4.0); Lymphocytes % 8.3 % (21.2-54.2); Mean Corpuscular HGB Conc 32.3 GM/DL (32-36); Mean Corpuscular Volume 85.3 FL (87-102); Mean Platelet Volume 10.9 FL (9.6-12.0); Monocytes % 6.3 % (1.7-12.7); Neutrophils % 80.6 % (38.7-73.9); Platelet Count 204 T/CUMM (130-400); Red Blood Count 3.88 MC/CUMM (3.8-5.5); Red Cell Distribution Width 15.2 % (9.3-17.3); White Blood Count 8.8 T/CUMM (4-12)
[2020-12-15 06:00] LABS: Albumin 2.5 G/DL (3.4-5.0); Bilirubin,Direct 0.28 MG/DL (0.0-0.20); Bilirubin,Indirect 0.9 MG/DL (0.0-1.0); Bilirubin,Total 1.2 MG/DL (0.2-1.0); Calcium 8.5 MG/DL (8.5-10.1); Osmolality,Calculated 282.4 MOS/KG (273-304); Potassium 4.5 MMOL/L (3.5-5.1); Total Protein 5.4 G/DL (6.4-8.2)
[2020-12-15] MEDS: CARBIDOPA/LEVODOPA 25-100 MG TABLET PER TUBE SCH ×3 (06:36→20:05)
[2020-12-15] MEDS: LEVALBUTEROL 1.25 MG/3 ML NEB RESP TX SCH ×3 (07:28→23:00)
[2020-12-15] MEDS: INSULIN GLARGINE 100 UNIT/ML SUBCUT SCH (08:18)
[2020-12-15] MEDS: FUROSEMIDE 40 MG/4 ML VIAL IV SCH ×2 (08:21→16:40)
[2020-12-15] MEDS: rOPINIRole 0.25 MG TABLET PO SCH ×3 (08:29→20:06)
[2020-12-15] MEDS: ASPIRIN CHEW 81 MG TABLET PO SCH (08:30)
[2020-12-15] MEDS: APIXABAN 5 MG TABLET PO SCH ×2 (08:30→20:05)
[2020-12-15] MEDS: AMIODARONE 200 MG TABLET NG SCH ×2 (08:30→20:06)
[2020-12-15] MEDS: ASCORBIC ACID 500 MG TABLET NG SCH ×2 (08:30→20:05)
[2020-12-15] MEDS: DOCUSATE SODIUM 100 MG/10 ML UDCUP PO SCH ×2 (08:30→20:04)
[2020-12-15] MEDS: METOPROLOL TARTRATE 25 MG TABLET NG SCH ×2 (08:31→20:05)
[2020-12-15] MEDS: CHLORHEXIDINE 0.12% ORAL RINSE 60 ML BOTTLE SWISH/SPIT SCH ×2 (08:31→20:06)
[2020-12-15] MEDS: NOURIANZ PER TUBE SCH (11:21)
[2020-12-15] MEDS: CARBIDOPA/LEVODOPA 25-100 MG TABLET PO SCH ×2 (11:21→17:09)
[2020-12-15] MEDS: ROSUVASTATIN 20 MG TABLET NG SCH (20:06)
[2020-12-16] MEDS: MEROPENEM 500 MG in SODIUM CHLORIDE 0.9% 100 ML IV SCH ×4 (02:40→20:55)
[2020-12-16] MEDS: INSULIN LISPRO 100 UNIT/ML SUBCUT SCH ×6 (04:01→23:27)
[2020-12-16 06:13] LABS: Basophils % 0.1 % (0.0-0.8); Eosinophils # 0.3 10*3/uL (0.0-0.87); Eosinophils % 4.2 % (0.00-10.9); Hematocrit 33.7 VOL% (42.0-52.0); Hemoglobin 10.2 GM/DL (14.0-18.0); Immature Granulocytes % 1.3 %; Lymphocytes # 1.1 10*3/uL (1.4-4.0); Lymphocytes % 13.7 % (21.2-54.2); Mean Corpuscular HGB Conc 30.3 GM/DL (32-36); Mean Corpuscular Volume 89.9 FL (87-102); Mean Platelet Volume 11.1 FL (9.6-12.0); Monocytes % 6.4 % (1.7-12.7); Neutrophils % 74.3 % (38.7-73.9); Platelet Count 227 T/CUMM (130-400); Red Blood Count 3.75 MC/CUMM (3.8-5.5); Red Cell Distribution Width 15.6 % (9.3-17.3); White Blood Count 7.8 T/CUMM (4-12)
[2020-12-16 06:27] LABS: Calcium 8.6 MG/DL (8.5-10.1); Osmolality,Calculated 287.3 MOS/KG (273-304)
[2020-12-16] MEDS: CARBIDOPA/LEVODOPA 25-100 MG TABLET PER TUBE SCH ×3 (06:55→20:53)
[2020-12-16] MEDS: LEVALBUTEROL 1.25 MG/3 ML NEB RESP TX SCH ×3 (07:55→22:36)
[2020-12-16] MEDS: NOURIANZ PER TUBE SCH (09:17)
[2020-12-16] MEDS: INSULIN GLARGINE 100 UNIT/ML SUBCUT SCH (09:18)
[2020-12-16] MEDS: ASPIRIN CHEW 81 MG TABLET PO SCH (09:18)
[2020-12-16] MEDS: FUROSEMIDE 40 MG/4 ML VIAL IV SCH ×2 (09:18→16:07)
[2020-12-16] MEDS: rOPINIRole 0.25 MG TABLET PO SCH ×3 (09:18→20:54)
[2020-12-16] MEDS: CARBIDOPA/LEVODOPA 25-100 MG TABLET PO SCH ×2 (09:19→15:54)
[2020-12-16] MEDS: AMIODARONE 200 MG TABLET NG SCH (09:19)
[2020-12-16] MEDS: APIXABAN 5 MG TABLET PO SCH ×2 (09:19→20:57)
[2020-12-16] MEDS: ASCORBIC ACID 500 MG TABLET NG SCH (09:19)
[2020-12-16] MEDS: CHLORHEXIDINE 0.12% ORAL RINSE 60 ML BOTTLE SWISH/SPIT SCH ×2 (09:20→20:54)
[2020-12-16] MEDS: METOPROLOL TARTRATE 25 MG TABLET NG SCH (09:20)
[2020-12-16] MEDS: DOCUSATE SODIUM 100 MG/10 ML UDCUP PO SCH ×2 (09:20→20:54)
[2020-12-16] MEDS ORDERED: CLORAZEPATE 3.75 MG TABLET PO PRN (17:09)
[2020-12-16] MEDS: ROSUVASTATIN 20 MG TABLET NG SCH (20:53)
[2020-12-16] MEDS: METOPROLOL TARTRATE 25 MG TABLET PO SCH (20:54)
[2020-12-17] MEDS: MEROPENEM 500 MG in SODIUM CHLORIDE 0.9% 100 ML IV SCH ×4 (03:09→21:00)
[2020-12-17] MEDS: INSULIN LISPRO 100 UNIT/ML SUBCUT SCH ×4 (03:40→20:34)
[2020-12-17] MEDS: CARBIDOPA/LEVODOPA 25-100 MG TABLET PER TUBE SCH ×3 (06:18→21:02)
[2020-12-17] MEDS: LEVALBUTEROL 1.25 MG/3 ML NEB RESP TX SCH ×2 (07:25→14:25)
[2020-12-17] MEDS: rOPINIRole 0.25 MG TABLET PO SCH ×3 (09:04→21:15)
[2020-12-17] MEDS: ASPIRIN CHEW 81 MG TABLET PO SCH (09:04)
[2020-12-17] MEDS: INSULIN GLARGINE 100 UNIT/ML SUBCUT SCH (09:04)
[2020-12-17] MEDS: CARBIDOPA/LEVODOPA 25-100 MG TABLET PO SCH ×2 (09:05→15:14)
[2020-12-17] MEDS: APIXABAN 5 MG TABLET PO SCH ×2 (09:05→21:15)
[2020-12-17] MEDS: DOCUSATE SODIUM 100 MG/10 ML UDCUP PO SCH ×2 (09:05→21:15)
[2020-12-17] MEDS: AMIODARONE 200 MG TABLET PO SCH (09:05)
[2020-12-17] MEDS: METOPROLOL TARTRATE 25 MG TABLET PO SCH ×2 (09:05→21:15)
[2020-12-17] MEDS: FUROSEMIDE 40 MG/4 ML VIAL IV SCH ×2 (09:06→15:18)
[2020-12-17] MEDS: CHLORHEXIDINE 0.12% ORAL RINSE 60 ML BOTTLE SWISH/SPIT SCH ×2 (09:11→21:15)
[2020-12-17] MEDS: NOURIANZ PER TUBE SCH (09:17)
[2020-12-17] MEDS: ONDANSETRON 4 MG/2 ML VIAL IV PRN (12:19)
[2020-12-17] MEDS: GABAPENTIN 100 MG CAPSULE PO PRN (16:17)
[2020-12-17] MEDS: ROSUVASTATIN 20 MG TABLET NG SCH (21:15)
[2020-12-18] MEDS: INSULIN LISPRO 100 UNIT/ML SUBCUT SCH ×5 (00:02→16:03)
[2020-12-18] MEDS: LEVALBUTEROL 1.25 MG/3 ML NEB RESP TX SCH ×4 (00:47→22:30)
[2020-12-18] MEDS: MEROPENEM 500 MG in SODIUM CHLORIDE 0.9% 100 ML IV SCH ×4 (03:03→20:29)
[2020-12-18] MEDS: rOPINIRole 0.25 MG TABLET PO SCH ×3 (08:30→20:30)
[2020-12-18] MEDS: AMIODARONE 200 MG TABLET PO SCH (08:30)
[2020-12-18] MEDS: ASPIRIN CHEW 81 MG TABLET PO SCH (08:30)
[2020-12-18] MEDS: CARBIDOPA/LEVODOPA 25-100 MG TABLET PER TUBE SCH ×3 (08:30→18:20)
[2020-12-18] MEDS: METOPROLOL TARTRATE 25 MG TABLET PO SCH ×2 (08:30→20:30)
[2020-12-18] MEDS: APIXABAN 5 MG TABLET PO SCH ×2 (08:31→20:30)
[2020-12-18] MEDS: DOCUSATE SODIUM 100 MG/10 ML UDCUP PO SCH ×3 (08:31→21:03)
[2020-12-18] MEDS: NOURIANZ PER TUBE SCH (08:32)
[2020-12-18] MEDS: INSULIN GLARGINE 100 UNIT/ML SUBCUT SCH (08:32)
[2020-12-18] MEDS: FUROSEMIDE 40 MG/4 ML VIAL IV SCH ×2 (08:36→15:50)
[2020-12-18] MEDS: CHLORHEXIDINE 0.12% ORAL RINSE 60 ML BOTTLE SWISH/SPIT SCH ×2 (08:37→20:31)
[2020-12-18] MEDS: GABAPENTIN 100 MG CAPSULE PO PRN ×2 (09:17→21:07)
[2020-12-18] MEDS: CARBIDOPA/LEVODOPA 25-100 MG TABLET PO SCH ×2 (10:10→15:46)
[2020-12-18] MEDS: MENTHOL/ZINC OXIDE OINT 71 GM JAR TOP SCH ×2 (11:02→20:31)
[2020-12-18] MEDS: clonazePAM 0.5 MG TABLET PO SCH (20:29)
[2020-12-18] MEDS: ROSUVASTATIN 20 MG TABLET NG SCH (20:30)
[2020-12-19 05:09] LABS: Basophils % 0.3 % (0.0-0.8); Eosinophils # 0.2 10*3/uL (0.0-0.87); Eosinophils % 3.4 % (0.00-10.9); Hematocrit 32.9 VOL% (42.0-52.0); Hemoglobin 9.9 GM/DL (14.0-18.0); Immature Granulocytes Absolute 0.07 #; Lymphocytes # 1.1 10*3/uL (1.4-4.0); Lymphocytes % 15.5 % (21.2-54.2); Mean Corpuscular HGB Conc 30.1 GM/DL (32-36); Mean Corpuscular Volume 90.1 FL (87-102); Mean Platelet Volume 10.6 FL (9.6-12.0); Neutrophils % 73.8 % (38.7-73.9); Platelet Count 228 T/CUMM (130-400); Red Blood Count 3.65 MC/CUMM (3.8-5.5); Red Cell Distribution Width 15.3 % (9.3-17.3); White Blood Count 6.8 T/CUMM (4-12)
[2020-12-19 05:56] LABS: Calcium 8.9 MG/DL (8.5-10.1); Potassium 4.2 MMOL/L (3.5-5.1)
[2020-12-19 06:22] LABS: Osmolality,Calculated 285.1 MOS/KG (273-304)
[2020-12-19] MEDS: NOURIANZ PER TUBE SCH ×2 (06:46→09:45)
[2020-12-19] MEDS: CARBIDOPA/LEVODOPA 25-100 MG TABLET PER TUBE SCH ×3 (06:50→18:08)
[2020-12-19] MEDS: LEVALBUTEROL 1.25 MG/3 ML NEB RESP TX SCH ×2 (07:01→14:58)
[2020-12-19] MEDS ORDERED: MAGNESIUM HYDROXIDE SUSP 30 ML UDCUP PO PRN (09:28)
[2020-12-19] MEDS: FUROSEMIDE 40 MG/4 ML VIAL IV SCH ×2 (09:41→15:37)
[2020-12-19] MEDS: rOPINIRole 0.25 MG TABLET PO SCH ×3 (09:42→20:12)
[2020-12-19] MEDS: ASPIRIN CHEW 81 MG TABLET PO SCH (09:43)
[2020-12-19] MEDS: AMIODARONE 200 MG TABLET PO SCH (09:43)
[2020-12-19] MEDS: CARBIDOPA/LEVODOPA 25-100 MG TABLET PO SCH ×2 (09:43→15:34)
[2020-12-19] MEDS: METOPROLOL TARTRATE 25 MG TABLET PO SCH ×2 (09:43→20:12)
[2020-12-19] MEDS: CHLORHEXIDINE 0.12% ORAL RINSE 60 ML BOTTLE SWISH/SPIT SCH ×2 (09:44→20:12)
[2020-12-19] MEDS: APIXABAN 5 MG TABLET PO SCH ×2 (09:44→20:12)
[2020-12-19] MEDS: MENTHOL/ZINC OXIDE OINT 71 GM JAR TOP SCH ×2 (09:44→20:12)
[2020-12-19] MEDS: DOCUSATE SODIUM 100 MG/10 ML UDCUP PO SCH ×2 (09:44→20:13)
[2020-12-19] MEDS: GABAPENTIN 300 MG CAPSULE PO SCH ×2 (20:12→22:05)
[2020-12-19] MEDS: ROSUVASTATIN 20 MG TABLET NG SCH (20:12)
[2020-12-19] MEDS: clonazePAM 0.5 MG TABLET PO SCH (20:12)
[2020-12-20] MEDS: LEVALBUTEROL 1.25 MG/3 ML NEB RESP TX SCH ×4 (01:00→23:54)
[2020-12-20 06:10] LABS: Calcium 9.1 MG/DL (8.5-10.1); Osmolality,Calculated 286.1 MOS/KG (273-304); Potassium 4.1 MMOL/L (3.5-5.1)
[2020-12-20] MEDS: CARBIDOPA/LEVODOPA 25-100 MG TABLET PER TUBE SCH ×3 (06:30→19:03)
[2020-12-20 06:48] LABS: Basophils % 0.3 % (0.0-0.8); Eosinophils # 0.2 10*3/uL (0.0-0.87); Eosinophils % 3.1 % (0.00-10.9); Hematocrit 33.3 VOL% (42.0-52.0); Immature Granulocytes % 0.8 %; Immature Granulocytes Absolute 0.06 #; Lymphocytes # 1.1 10*3/uL (1.4-4.0); Lymphocytes % 14.5 % (21.2-54.2); Mean Platelet Volume 10.1 FL (9.6-12.0); Monocytes % 4.8 % (1.7-12.7); Neutrophils % 76.5 % (38.7-73.9); Platelet Count 237 T/CUMM (130-400); Red Cell Distribution Width 15.1 % (9.3-17.3); White Blood Count 7.7 T/CUMM (4-12)
[2020-12-20] MEDS: ASPIRIN CHEW 81 MG TABLET PO SCH (08:59)
[2020-12-20] MEDS: rOPINIRole 0.25 MG TABLET PO SCH ×3 (08:59→21:18)
[2020-12-20] MEDS: APIXABAN 5 MG TABLET PO SCH ×2 (08:59→21:19)
[2020-12-20] MEDS: METOPROLOL TARTRATE 25 MG TABLET PO SCH (08:59)
[2020-12-20] MEDS: AMIODARONE 200 MG TABLET PO SCH (08:59)
[2020-12-20] MEDS: DOCUSATE SODIUM 100 MG/10 ML UDCUP PO SCH ×2 (09:00→09:14)
[2020-12-20] MEDS: FUROSEMIDE 40 MG/4 ML VIAL IV SCH ×2 (09:00→16:45)
[2020-12-20] MEDS: MENTHOL/ZINC OXIDE OINT 71 GM JAR TOP SCH ×2 (09:00→21:19)
[2020-12-20] MEDS: CHLORHEXIDINE 0.12% ORAL RINSE 60 ML BOTTLE SWISH/SPIT SCH ×2 (09:00→21:18)
[2020-12-20] MEDS: CARBIDOPA/LEVODOPA 25-100 MG TABLET PO SCH ×2 (09:05→16:48)
[2020-12-20] MEDS: NOURIANZ PER TUBE SCH (09:05)
[2020-12-20] MEDS: ASCORBIC ACID 500 MG TABLET PO SCH ×2 (09:19→21:19)
[2020-12-20] MEDS ORDERED: METOPROLOL SUCCINATE XL 25 MG TABLET PO ONE (11:34)
[2020-12-20] MEDS: ROSUVASTATIN 20 MG TABLET NG SCH (21:18)
[2020-12-20] MEDS: DOCUSATE SODIUM 100 MG CAPSULE PO SCH (21:18)
[2020-12-20] MEDS: clonazePAM 0.5 MG TABLET PO SCH (21:18)
[2020-12-20] MEDS: GABAPENTIN 300 MG CAPSULE PO SCH (21:19)
[2020-12-21] MEDS: GABAPENTIN 300 MG CAPSULE PO SCH (00:04)
[2020-12-21] MEDS: CARBIDOPA/LEVODOPA 25-100 MG TABLET PER TUBE SCH (06:48)
[2020-12-21] MEDS: LEVALBUTEROL 1.25 MG/3 ML NEB RESP TX SCH (07:10)
[2020-12-21] MEDS: DOCUSATE SODIUM 100 MG CAPSULE PO SCH (08:20)
[2020-12-21] MEDS: rOPINIRole 0.25 MG TABLET PO SCH (08:21)
[2020-12-21] MEDS: APIXABAN 5 MG TABLET PO SCH (08:21)
[2020-12-21] MEDS: AMIODARONE 200 MG TABLET PO SCH (08:21)
[2020-12-21] MEDS: ASCORBIC ACID 500 MG TABLET PO SCH (08:21)
[2020-12-21] MEDS: FUROSEMIDE 40 MG/4 ML VIAL IV SCH (08:22)
[2020-12-21] MEDS: CHLORHEXIDINE 0.12% ORAL RINSE 60 ML BOTTLE SWISH/SPIT SCH (08:22)
[2020-12-21] MEDS: NOURIANZ PER TUBE SCH (08:22)
[2020-12-21] MEDS: ASPIRIN CHEW 81 MG TABLET PO SCH (08:22)
[2020-12-21] MEDS: MENTHOL/ZINC OXIDE OINT 71 GM JAR TOP SCH (08:23)
[2020-12-21] MEDS ORDERED: METOPROLOL SUCCINATE XL 25 MG TABLET PO SCH (09:00)
[2020-12-21] MEDS: CARBIDOPA/LEVODOPA 25-100 MG TABLET PO SCH (10:12)
[2020-12-21 12:35] VITALS: BP 100/55
== END 2020-12-21 12:43 | DRG 233 ==
LOC: EDBD → EDUNIT# → N.ED 10:06 → N.EDINP 14:08 → SUATTDRO 14:08 → N.ICU 15:58 → N.CVR 12-09 07:24 → N.ICU 12-10 09:46 → N.TELES 12-16 14:14
PROVIDERS: ADMIT Internal Medicine
PROC: CLCCHCL (ICD-10-PCS; 2020-12-06 12:15)